=== PATIENT | male | born 1965 | race Caucasian/White ===

== ENCOUNTER 2019-09-17 15:26 | Emergency (ER) | payer BC, SELFPAY ==
[2019-09-17 15:28] VITALS: BP 123/89; PULSE 103; RESP 18; TEMP 36.7; O2SAT 97; BMI 30.7
--- NOTE | 2019-09-17 17:14 | ED_ITS ---
HPI - Wound/Laceration General: Chief Complaint: Wound/Laceration Stated Complaint: foot pain Time Seen by Provider: 09/17/19 17:09 History of Present Illness: HPI narrative: Patient is a 54-year-old male who comes to the ED with a diabetic ulcer on right great toe. Patient has a past medical history of diabetes and neuropathy. Patient says that wound started with cut on his right big toe about 2 to 3 weeks ago. He was putting Neosporin and bandaging wound daily. It then started getting worse and he went and saw his PCP and he prescribed him doxycycline and Augmentin. He has been taking all his medications and wound continues to progress. He does not have any pain with ulcer due to his diabetic neuropathy. He has not seen wound clinic. Patient states he has had some low-grade fevers the past couple days with temperatures of about 100 ?F. Associated symptoms: Reports fever(s); Denies chills, nausea or vomiting Review of Systems Const: Reports: fever; Denies: chills or fatigue Eyes: Denies: change in vision or eye discomfort ENMT: Denies: throat pain, painful swallowing, nasal discharge or nasal congestion Card: Denies: chest pain, palpitations, edema, swelling of feet/ankles, shortness of breath on exertion or shortness of breath when lying down Resp: Denies: shortness of breath, productive cough or non-productive cough GI: Denies: abdominal pain, nausea, vomiting, diarrhea, constipation or blood in stool : Denies: flank pain, difficulty urinating, painful urination or blood in urine Musc: Reports: extremity swelling (right great toe); Denies: neck pain or back pain Skin/Breast: Reports: redness (right great toe) and non-healing lesion (right great toe ulcer); Denies: rash or new lesion Neuro: Denies: headache, numbness in extremities or weakness in extremities [facility] ED PFSH: Medical History (Updated 09/17/19 @ 19:32 by OLIVA Iyer) Diabetes Neuropathy Social History Smoking and tobacco status: never smoked Physical Exam Const: COMMON NORMALS: oriented x3 HENMT: COMMON NORMALS: normocephalic HEAD & SCALP: normocephalic MOUTH: oral and palatal mucosa normal THROAT: posterior oropharynx normal and uvula midline Neck/C-Spine: COMMON NORMALS: supple GENERAL: Yes normal visual inspection Resp: COMMON NORMALS: normal respiratory effort, no retractions, no use of accessory muscles and clear to auscultation bilaterally AUSCULTATION: clear to auscultation bilaterally Cardio: COMMON NORMALS: regular rate, regular rhythm, S1 normal heart sound, S2 normal heart sound, no gallops, no clicks, no murmurs and peripheral pulses 2+ throughout RATE: regular rate RHYTHM: regular rhythm HEART SOUNDS: S1 normal and S2 normal PERIPHERAL PULSES: pulses 2+ throughout GI: COMMON NORMALS: normal to inspection, nondistended, normoactive bowel sounds, soft to palpation, non-tender and no masses PALPATION: Yes soft : COMMON NORMALS: Yes no CVA tenderness BLADDER/KIDNEY EXAM: Yes no CVA tenderness Back/Pelvis: COMMON NORMALS: no CVA tenderness Neuro: COMMON NORMALS: oriented x3 and moves all extremities Skin: WOUNDS: Yes wounds noted (Ulcers on bottom side of right great toe erythema and swelling covering the entire great toe) size (2.5cm circular ulcer with surrounding erythema), bed (Ulcer at depth of subcutaneous tissue.) nec rotic, drainage white, serous and purulent and with surrounding erythema (Patient has some surrounding cellulitis on the great great toe around the ulcer with some necrotic skin tissue on the great toe as well) Course Vital Signs: Vital signs: Vital Signs Temperature 98.0 F 09/17/19 15:28 Pulse Rate 93 09/17/19 21:59 Respiratory Rate 18 09/17/19 21:59 Blood Pressure 126/89 09/17/19 21:59 Pulse Oximetry 96 09/17/19 21:59 MDM - Wound/Laceration MDM Narrative: Medical decision making narrative: Patient is a 54-year-old male who comes to the ED with a diabetic ulcer on right great toe. Patient is currently on two antibiotics and not seeing any improvement. Physical exam showed a 2.5cm ulcer on right great toe with surrounding erythema and some necrotic skin tissue. Wound is also draining fluid. Right foot x-ray showed no soft tissue emphysema or osteomyelitis. ESR 93, CRP 276.8. CBC showed a white blood cell count of 13.4. Sodium of 127. Patient was given IV fluids and IV antibiotics (Rocephin and vancomycin) while here in the ED. I put a referral in with case management for patient to be seen at wound clinic. Patient was discharged with a prescription of Bactrim and told to stop taking his doxycycline. Patient understood and agreed with plan. Lab Data: Labs: Lab Results 09/17/19 09/17/19 09/17/19 Range/Units 20:31 20:31 20:31 WBC 13.4 H (4.0-10.0) 10^3/ uL RBC 5.49 H (4.1-5.3) 10^6/u L Hgb 14.0 (11.7-16.6) g/dL Hct 42.8 (42.0-52.0) % MCV 78.0 L (80-94) fL MCH 25.5 L (28.0-34.0) pg MCHC 32.7 (30.0-36.0) g/dL RDW 12.2 (12.1-15.1) % Plt Count 324 (130-400) 10^3/c mm MPV 9.1 (7.4-10.4) fL Neut % (Auto) 74.6 % Lymph % (Auto) 15.4 % [place] % (Auto) 7.9 % Eos % (Auto) 0.8 % Baso % (Auto) 0.3 % Neut # (Auto) 10.0 H (1.8-7.7) 10^3/u L Lymph # (Auto) 2.1 (0.8-4.8) 10^3/u L [place] # (Auto) 1.1 H (0.2-0.9) 10^3/u L Eos # (Auto) 0.1 (0.0-0.8) 10^3/u L Baso # (Auto) 0.0 (0.0-0.1) 10^3/u L Nucleated RBC % (a uto) 0 % Nucleated RBCs # 0.0 /100WBC ESR 93 H (0-10) mm/hr Sodium 127 L (136-145) mmol/L Potassium 4.4 (3.5-5.1) mmol/L Chloride 87 L (98-107) mmol/L Carbon Dioxide 25 (22-29) mmol/L Anion Gap 19.4 H (5-19) BUN 12 (6-20) mg/dL Creatinine 0.7 (0.7-1.2) mg/dL GFR Calculation 118.0 (90-130) mL/min Glucose 298 H (65-115) mg/dL Calculated Osmolal ity 271 L (285-295) mOsm/k g Calcium 9.4 (8.5-10.5) mg/dL Total Bilirubin 0.6 (0.15-1.2) mg/dL AST 14 (0-40) U/L ALT 16 (0-41) U/L Alkaline Phosphata se 100 (40-130) IU/L C-Reactive Protein 276.8 H (0.0-4.9) mg/L Total Protein 8.6 (6.6-8.7) g/dL Albumin 3.4 L (3.5-5.2) g/dL Globulin 5.2 H (1.3-4.6) g/dL Imaging Data^: Xray Ortho: Attestation: I personally reviewed and interpreted this imaging study as follows: Radiologist's impression: [place] [id number] XRay Report Signed Patient: Baldev Schmidt Unit #: [id number] : 1965 Age/Sex: 54 / M ADM Date: 09/17/19 Loc: ER Room/Bed: Attending Dr: Ordering Provider/Ordering MD: Freddy Beltre Date of Service: 09/17/19 Procedure(s): XR foot RT min 3V* [id number] Accession Number(s): [id number] Report Number: [id number] PROCEDURE INFORMATION: Exam: XR Right Foot Complete Exam date and time: 09/17/2019 5:47 PM Age: 54 years old Clinical indication: Other: Nonhealing ulcer RT great toe. Toe is black and swollen; Additional info: Chronic ulcer that is getting worse on great toe TECHNIQUE: Imaging protocol: XR Right foot. Views: 3 or more views. COMPARISON: No relevant prior studies available. FINDINGS: Bones/joints: Calcaneal spur. Soft tissues: Great toe soft tissue swelling with possible ulceration or skin defects over the medial aspect of the distal great toe. No obvious soft tissue emphysema or osteomyelitis. XR/XR foot RT min 3V* [id number] IMPRESSION: 1. Great toe soft tissue swelling with possible ulceration or skin defects over the medial aspect of the distal great toe. 2. No obvious soft tissue emphysema or osteomyelitis. Dictated By: Tj Tabares MD Signed By: Tj Tabares MD Signed Date/Time: 09/17/191806 DD/ 04 Discharge Plan Discharge Patient Disposition: Home, Self-Care Clinical Impression: Diabetic foot ulcer Qualifiers: Diabetic foot ulcer location: toe Diabetes mellitus type: type 2 Laterality: right Non-pressure ulcer stage: limited to breakdown of skin Qualified Code(s): E11.621 - Type 2 diabetes mellitus with foot ulcer Cellulitis Qualifiers: Site of cellulitis: extremity Site of cellulitis of extremity: toe Laterality: right Qualified Code(s): L03.031 - Cellulitis of right toe Condition: Stable Prescriptions: New Bactrim DS 800-160 mg tablet 2 tab PO BID 10 Days Qty: 40 RF: 0 Discharge Orders: Discharge Order (Routine); Ordered 09/17/19 Ordered By: Freddy Beltre Discharge Diet: Regular Discharge Activity: Resume usual activity Patient Instructions: Chronic Wound Care (ED), Wound Healing and Your Diet (ED), Wound Care (General) Activity Restrictions/Additional Instructions: Wound care clinic should be calling you to set up an appointment in the next several days. Take full course of antibiotics as prescribed. You can stop taking doxycycline, but continue the other antibiotic (augmentin) along with newly prescribed antibiotic. Discharge Date/Time: 09/17/19 22:00 Coding Level of Care Code ED Market Research Associate for [employer] Fwd Exam Comprehensive
--- NOTE | 2019-09-17 17:44 | XRR_ITS ---
PROCEDURE INFORMATION: Exam: XR Right Foot Complete Exam date and time: 09/17/2019 5:47 PM Age: 54 years old Clinical indication: Other: Nonhealing ulcer RT great toe. Toe is black and swollen; Additional info: Chronic ulcer that is getting worse on great toe TECHNIQUE: Imaging protocol: XR Right foot. Views: 3 or more views. COMPARISON: No relevant prior studies available. FINDINGS: Bones/joints: Calcaneal spur. Soft tissues: Great toe soft tissue swelling with possible ulceration or skin defects over the medial aspect of the distal great toe. No obvious soft tissue emphysema or osteomyelitis. XR/XR foot RT min 3V* [id number] IMPRESSION: 1. Great toe soft tissue swelling with possible ulceration or skin defects over the medial aspect of the distal great toe. 2. No obvious soft tissue emphysema or osteomyelitis.
[2019-09-17] MEDS: cefTRIAXone 1,000 MG in sodium chloride 0.9% (plus) 50 ML 100 MG IV (18:35)
[2019-09-17] MEDS: sodium chloride 0.9% 500 ML IV ×2 (18:36→20:44)
[2019-09-17 20:45] LABS: Basophils % 0.3 %; Eosinophils # 0.1 10^3/uL (0.0-0.8); Eosinophils % 0.8 %; Hematocrit 42.8 % (42.0-52.0); Lymphocytes # 2.1 10^3/uL (0.8-4.8); Lymphocytes % 15.4 %; Mean Corpuscular HGB Conc 32.7 g/dL (30.0-36.0); Mean Corpuscular Hemoglobin 25.5 pg (28.0-34.0); Mean Platelet Volume 9.1 fL (7.4-10.4); Monocytes # 1.1 10^3/uL (0.2-0.9); Monocytes % 7.9 %; Neutrophils % 74.6 %; Nucleated Red Blood Cells % 0 %; Platelet Count 324 10^3/cmm (130-400); Red Blood Count 5.49 10^6/uL (4.1-5.3); Red Cell Distribution Width 12.2 % (12.1-15.1); White Blood Count 13.4 10^3/uL (4.0-10.0)
[2019-09-17 21:06] LABS: Alanine Aminotransferase 16 U/L (0-41); Albumin Level 3.4 g/dL (3.5-5.2); Alkaline Phosphatase 100 IU/L (40-130); Anion Gap 19.4 (5-19); Aspartate Amino Transferase 14 U/L (0-40); Blood Urea Nitrogen 12 mg/dL (6-20); C Reactive Protein 276.8 mg/L (0.0-4.9); Calcium 9.4 mg/dL (8.5-10.5); Carbon Dioxide 25 mmol/L (22-29); Chloride 87 mmol/L (98-107); Globulin 5.2 g/dL (1.3-4.6); Glucose 298 mg/dL (65-115); Osmolality Calculated 271 mOsm/kg (285-295); Potassium 4.4 mmol/L (3.5-5.1); Sodium 127 mmol/L (136-145); Total Bilirubin 0.6 mg/dL (0.15-1.2); Total Protein 8.6 g/dL (6.6-8.7)
[2019-09-17 21:30] LABS: Erythrocyte Sedimentation Rate 93 mm/hr (0-10)
[2019-09-17 21:59] VITALS: BP 126/89; PULSE 93; RESP 18; O2SAT 96
--- NOTE | 2019-09-20 13:25 | DCPLANNER ---
online advertising manager had message to schedule a follow up with Wound Care. online advertising manager called the Wound Care clinic, spoke with Reina. A follow up appointment is scheduled for Sunday, September 22, 2019 at 8:[address] Melendez. Clinic will call patient with appointment information.
--- NOTE | 2019-11-02 08:22 | DCPLANNER ---
Patient attended appointment scheduled for 09.22.19 with Wound Care.
== END 2019-09-17 22:00 | disposition home or self-care (01) ==
PROVIDERS: Emergency Provider Physician Assistant
DX: E11.621 Type 2 diabetes mellitus with foot ulcer (principal); L03.031 Cellulitis of right toe; L97.519 Non-pressure chronic ulcer of other part of right foot with unspecified severity; Z79.2 Long term (current) use of antibiotics
CPT/HCPCS: 12345; 73630; 80053; 85025; 85651; 86140; 87070; 87077; 87186; 87205; 96360; 96361; 96365; 96366; 96367; 99283; 99284; A9270; J0696; J3370; J7040; J7050

== ENCOUNTER 2019-09-29 08:28 | Outpatient (RCR) | payer BC, SELFPAY ==
--- NOTE | 2019-09-28 08:33 | MR_ITS ---
WS: [id number] INDICATION: Pain redness nonhealing ulcer. TECHNIQUE: MRI of the right foot without and with gadolinium enhancement. Sagittal T1, sagittal PD, s agittal STIR imaging. Axial T1 and T2 and STIR imaging. Post gadolinium imaging was obtained. FINDINGS: Radiograph September 17, 2019 reviewed. Localization marker over the great toe medially. Diffus e soft tissue edema with T2 hyperintensity and diffuse enhancement consistent with cellulitis. No saadia inable abscess or fluid collection. Replacement of the normal fatty bone marrow signal involving the first distal proximal phalanx extending across the first DIP. Diffuse enhancement involving the proxi mal phalanx extending to the PIP joint. Findings are consistent with osteomyelitis. Metatarsals are normal in appearance. Soft tissue edema and cellulitis extending into the deep soft t issues and intertarsal soft tissues. Subcutaneous edema involving the lower leg and ankle. Scattered degenerative arthritis otherwise the right foot. Degenerative arthritis involving the calcaneus with degenerative cysts and bone islands. MR/MR foot RT wo/w con [id number] IMPRESSION: 1. Evidence of osteomyelitis involving the first distal phalanx and proximal phalanx with diffuse T2 hyperintensity and enhancement. Replacement normal bone marrow signal. 2. Diffuse cellulitis involving the soft tissues about the first digit extendi ng into the deep soft tissues. No drainable abscess or fluid collection.
== END 2019-09-30 23:59 | disposition home or self-care (01) ==
LOC: RADWPI 08:28
PROVIDERS: Visit Provider Thoracic Surgery (Cardiothoracic Vascular Surgery)
DX: E11.621 Type 2 diabetes mellitus with foot ulcer (principal); L97.516 Non-pressure chronic ulcer of other part of right foot with bone involvement without evidence of necrosis
CPT/HCPCS: 11042; 11045; 73720; 87070; 87077; 87106; 87176; 87186; 87205; 99213; A6446; A9579; G0463; L3260

== ENCOUNTER → 2019-09-30 09:09 | Day surgery (SDC) | payer BC, SELFPAY ==
--- NOTE | 2019-09-30 09:48 | XR_ITS ---
WS: [id number] PORTABLE CHEST HISTORY: picc line placement COMPARISON: None available. RIGHT PICC line is been placed with tip in the mid SVC. No complications. Subsegmental linear atelectasis central RIGHT lung. No pleural effusion or pneumothorax. Cardiac size: Normal. Mediastinum/Aorta: Normal mediastinum. No osseous abnormality seen. XR/XR chest 1V portable [id number] IMPRESSION: Satisfactory position of the RIGHT PICC line.
--- NOTE | 2019-09-30 10:20 | ECG_ITS ---
Measurements Intervals [place] Rate: 78 P: 45 AR: 195 QRS: 1 QRSD: 118 T: 37 QT: 361 QTc: 412 SINUS RHYTHM WITH FREQUENT VENTRICULAR PREMATURE COMPLEXES MODERATE INTRAVENTRICULAR CONDUCTION DELAY [110+ ms QRS DURATION] No previous ECG available for comparison Electronically Signed On 10-01-2019 16:09:43 CDT by Heidi Benitez M.D. [id number]
[2019-09-30 10:28] VITALS: BP 112/87; PULSE 70; RESP 16; TEMP 36.2; O2SAT 99; BMI 30.7
== END ==
LOC: OPS 09:15
PROVIDERS: PCP Nurse Practitioner Family; Visit Provider Thoracic Surgery (Cardiothoracic Vascular Surgery)
DX: Z45.2 Encounter for adjustment and management of vascular access device (principal)
CPT/HCPCS: 36569; 71045; 93005; 96365; 96366; J3370; J7040

== ENCOUNTER 2019-10-02 16:29 | Outpatient (CLI) | payer BC, SELFPAY ==
[2019-10-02 17:21] LABS: Vancomycin Trough 9.2 ug/mL (10-15)
== END 2019-10-02 16:30 | disposition home or self-care (01) ==
LOC: LAB 16:32
PROVIDERS: PCP Nurse Practitioner Family; Visit Provider Thoracic Surgery (Cardiothoracic Vascular Surgery)
DX: M86.9 Osteomyelitis, unspecified (principal)
CPT/HCPCS: 80202

== ENCOUNTER 2019-10-04 20:00 | Outpatient (CLI) | payer BC, SELFPAY ==
[2019-10-04 22:18] LABS: Basophils % 0.4 %; Eosinophils # 0.2 10^3/uL (0.0-0.8); Eosinophils % 2.6 %; Hematocrit 40.8 % (42.0-52.0); Hemoglobin 13.2 g/dL (11.7-16.6); Lymphocytes # 2.9 10^3/uL (0.8-4.8); Lymphocytes % 40.4 %; Mean Corpuscular HGB Conc 32.4 g/dL (30.0-36.0); Mean Corpuscular Hemoglobin 25.9 pg (28.0-34.0); Mean Corpuscular Volume 80.2 fL (80-94); Mean Platelet Volume 9.6 fL (7.4-10.4); Monocytes # 0.4 10^3/uL (0.2-0.9); Monocytes % 5.5 %; Neutrophils # 3.5 10^3/uL (1.8-7.7); Neutrophils % 50.2 %; Nucleated Red Blood Cells % 0 %; Platelet Count 297 10^3/cmm (130-400); Red Blood Count 5.09 10^6/uL (4.1-5.3); Red Cell Distribution Width 12.6 % (12.1-15.1); White Blood Count 7.1 10^3/uL (4.0-10.0)
[2019-10-04 22:28] LABS: Vancomycin Trough 9.6 ug/mL (10-15)
[2019-10-05 16:50] LABS: Anion Gap 17.7 (5-19); Blood Urea Nitrogen 13 mg/dL (6-20); Calcium 9.5 mg/dL (8.5-10.5); Carbon Dioxide 23 mmol/L (22-29); Chloride 95 mmol/L (98-107); Glucose 399 mg/dL (65-115); Osmolality Calculated 285 mOsm/kg (285-295); Potassium 4.7 mmol/L (3.5-5.1); Sodium 131 mmol/L (136-145)
== END 2019-10-04 20:01 | disposition home or self-care (01) ==
LOC: LAB 20:03
PROVIDERS: PCP Nurse Practitioner Family; Visit Provider Thoracic Surgery (Cardiothoracic Vascular Surgery)
DX: M86.00 Acute hematogenous osteomyelitis, unspecified site (principal)
CPT/HCPCS: 80048; 80202; 85025

== ENCOUNTER 2019-10-06 08:21 | Outpatient (CLI) | payer BC, SELFPAY | END 2019-10-06 08:22 | disposition home or self-care (01) | LOC: WOUND 08:25 | PROVIDERS: PCP Nurse Practitioner Family; Visit Provider Thoracic Surgery (Cardiothoracic Vascular Surgery) | DX: E11.621 Type 2 diabetes mellitus with foot ulcer (principal); L97.513 Non-pressure chronic ulcer of other part of right foot with necrosis of muscle | CPT/HCPCS: 11042; 11045; A6446 ==

== ENCOUNTER 2019-10-07 16:34 | Outpatient (CLI) | payer BC, SELFPAY ==
[2019-10-07 17:08] LABS: Anion Gap 15.1 (5-19); Blood Urea Nitrogen 8 mg/dL (6-20); Calcium 8.8 mg/dL (8.5-10.5); Carbon Dioxide 25 mmol/L (22-29); Chloride 94 mmol/L (98-107); Glucose 359 mg/dL (65-115); Osmolality Calculated 280 mOsm/kg (285-295); Potassium 4.1 mmol/L (3.5-5.1); Sodium 130 mmol/L (136-145); Vancomycin Trough 16.3 ug/mL (10-15)
== END 2019-10-07 16:35 | disposition home or self-care (01) ==
LOC: LAB 16:36
PROVIDERS: PCP Nurse Practitioner Family; Visit Provider Thoracic Surgery (Cardiothoracic Vascular Surgery)
DX: M86.171 Other acute osteomyelitis, right ankle and foot (principal)
CPT/HCPCS: 80048; 80202

== ENCOUNTER 2019-10-07 19:39 | Outpatient (CLI) | payer BC, SELFPAY ==
[2019-10-07 20:10] LABS: Anion Gap 15.6 (5-19); Blood Urea Nitrogen 9 mg/dL (6-20); Calcium 9.8 mg/dL (8.5-10.5); Carbon Dioxide 25 mmol/L (22-29); Chloride 97 mmol/L (98-107); Glucose 334 mg/dL (65-115); Osmolality Calculated 285 mOsm/kg (285-295); Potassium 4.6 mmol/L (3.5-5.1); Sodium 133 mmol/L (136-145); Vancomycin Trough 18.9 ug/mL (10-15)
== END 2019-10-07 19:40 | disposition home or self-care (01) ==
LOC: LAB 19:41
PROVIDERS: PCP Nurse Practitioner Family; Visit Provider Thoracic Surgery (Cardiothoracic Vascular Surgery)
DX: M86.171 Other acute osteomyelitis, right ankle and foot (principal)
CPT/HCPCS: 80048; 80202

== ENCOUNTER 2019-10-11 18:38 | Outpatient (CLI) | payer BC, SELFPAY ==
[2019-10-12 01:56] LABS: Blood Urea Nitrogen 11 mg/dL (6-20); Calcium 9.1 mg/dL (8.5-10.5); Carbon Dioxide 26 mmol/L (22-29); Chloride 96 mmol/L (98-107); Glucose 223 mg/dL (65-115); Osmolality Calculated 283 mOsm/kg (285-295); Sodium 135 mmol/L (136-145); Vancomycin Trough 19.4 ug/mL (10-15)
== END 2019-10-11 18:39 | disposition home or self-care (01) ==
LOC: LAB 18:41
PROVIDERS: PCP Nurse Practitioner Family; Visit Provider Thoracic Surgery (Cardiothoracic Vascular Surgery)
DX: M86.9 Osteomyelitis, unspecified (principal)
CPT/HCPCS: 80048; 80202

== ENCOUNTER 2019-10-13 09:25 | Outpatient (CLI) | payer BC, SELFPAY | END 2019-10-13 09:26 | disposition home or self-care (01) | LOC: WOUND 09:25 | PROVIDERS: PCP Nurse Practitioner Family; Visit Provider Thoracic Surgery (Cardiothoracic Vascular Surgery) | DX: E11.621 Type 2 diabetes mellitus with foot ulcer (principal); L97.512 Non-pressure chronic ulcer of other part of right foot with fat layer exposed; L97.412 Non-pressure chronic ulcer of right heel and midfoot with fat layer exposed | CPT/HCPCS: 11042 ==

== ENCOUNTER 2019-10-14 17:26 | Outpatient (CLI) | payer BC, SELFPAY ==
[2019-10-14 23:42] LABS: Anion Gap 18.9 (5-19); Blood Urea Nitrogen 9 mg/dL (6-20); Calcium 9.2 mg/dL (8.5-10.5); Carbon Dioxide 23 mmol/L (22-29); Chloride 94 mmol/L (98-107); Glucose 317 mg/dL (65-115); Osmolality Calculated 282 mOsm/kg (285-295); Potassium 3.9 mmol/L (3.5-5.1); Sodium 132 mmol/L (136-145); Vancomycin Trough 18.5 ug/mL (10-15)
== END 2019-10-14 17:27 | disposition home or self-care (01) ==
LOC: LAB 17:27
PROVIDERS: PCP Nurse Practitioner Family; Visit Provider Thoracic Surgery (Cardiothoracic Vascular Surgery)
DX: M86.171 Other acute osteomyelitis, right ankle and foot (principal)
CPT/HCPCS: 80048; 80202

== ENCOUNTER 2019-10-18 17:05 | Outpatient (CLI) | payer BC, SELFPAY ==
[2019-10-18 19:52] LABS: Basophils # 0.1 10^3/uL (0.0-0.1); Eosinophils # 0.2 10^3/uL (0.0-0.8); Eosinophils % 4.1 %; Hematocrit 40.9 % (42.0-52.0); Hemoglobin 13.1 g/dL (11.7-16.6); Lymphocytes # 1.8 10^3/uL (0.8-4.8); Lymphocytes % 34.4 %; Mean Corpuscular Hemoglobin 25.4 pg (28.0-34.0); Mean Corpuscular Volume 79.4 fL (80-94); Mean Platelet Volume 9.8 fL (7.4-10.4); Monocytes # 0.4 10^3/uL (0.2-0.9); Neutrophils # 2.7 10^3/uL (1.8-7.7); Neutrophils % 52.3 %; Nucleated Red Blood Cells % 0 %; Platelet Count 225 10^3/cmm (130-400); Red Blood Count 5.15 10^6/uL (4.1-5.3); Red Cell Distribution Width 13.2 % (12.1-15.1); White Blood Count 5.1 10^3/uL (4.0-10.0)
[2019-10-19 00:34] LABS: Anion Gap 17.9 (5-19); Blood Urea Nitrogen 8 mg/dL (6-20); Calcium 8.9 mg/dL (8.5-10.5); Carbon Dioxide 23 mmol/L (22-29); Chloride 99 mmol/L (98-107); Glucose 268 mg/dL (65-115); Osmolality Calculated 287 mOsm/kg (285-295); Potassium 3.9 mmol/L (3.5-5.1); Sodium 136 mmol/L (136-145); Vancomycin Trough 19.8 ug/mL (10-15)
== END 2019-10-18 17:06 | disposition home or self-care (01) ==
PROVIDERS: PCP Nurse Practitioner Family; Visit Provider Thoracic Surgery (Cardiothoracic Vascular Surgery)
DX: M86.171 Other acute osteomyelitis, right ankle and foot (principal)
CPT/HCPCS: 80048; 80202; 85025

== ENCOUNTER 2019-10-20 09:01 | Outpatient (CLI) | payer BC, SELFPAY | END 2019-10-20 09:02 | disposition home or self-care (01) | LOC: WOUND 09:02 | PROVIDERS: PCP Nurse Practitioner Family; Visit Provider Thoracic Surgery (Cardiothoracic Vascular Surgery) | DX: E11.621 Type 2 diabetes mellitus with foot ulcer (principal); L97.512 Non-pressure chronic ulcer of other part of right foot with fat layer exposed | CPT/HCPCS: 11042; A6446 ==

== ENCOUNTER 2019-10-21 16:14 | Outpatient (CLI) | payer BC, SELFPAY ==
[2019-10-21 16:57] LABS: Anion Gap 17.1 (5-19); Blood Urea Nitrogen 10 mg/dL (6-20); Calcium 9.1 mg/dL (8.5-10.5); Carbon Dioxide 24 mmol/L (22-29); Chloride 96 mmol/L (98-107); Glomerular Filtration Rate 101.1 mL/min (90-130); Glucose 290 mg/dL (65-115); Osmolality Calculated 283 mOsm/kg (285-295); Potassium 4.1 mmol/L (3.5-5.1); Sodium 133 mmol/L (136-145)
== END 2019-10-21 16:15 | disposition home or self-care (01) ==
LOC: LAB 16:17
PROVIDERS: PCP Nurse Practitioner Family; Visit Provider Thoracic Surgery (Cardiothoracic Vascular Surgery)
DX: M86.071 Acute hematogenous osteomyelitis, right ankle and foot (principal)
CPT/HCPCS: 80048; 80202

== ENCOUNTER 2019-10-26 18:09 | Outpatient (CLI) | payer BC, SELFPAY ==
[2019-10-26 20:00] LABS: Blood Urea Nitrogen 12 mg/dL (6-20); Carbon Dioxide 26 mmol/L (22-29); Chloride 94 mmol/L (98-107); Glucose 263 mg/dL (65-115); Osmolality Calculated 279 mOsm/kg (285-295); Sodium 132 mmol/L (136-145); Vancomycin Trough 15.5 ug/mL (10-15)
== END 2019-10-26 18:10 | disposition home or self-care (01) ==
LOC: LAB 18:11
PROVIDERS: PCP Nurse Practitioner Family; Visit Provider Thoracic Surgery (Cardiothoracic Vascular Surgery)
DX: M86.9 Osteomyelitis, unspecified (principal)
CPT/HCPCS: 80048; 80202

== ENCOUNTER 2019-10-27 10:14 | Outpatient (CLI) | payer BC, SELFPAY | END 2019-10-27 10:15 | disposition home or self-care (01) | LOC: WOUND 10:14 | PROVIDERS: PCP Nurse Practitioner Family; Visit Provider Thoracic Surgery (Cardiothoracic Vascular Surgery) | DX: E11.621 Type 2 diabetes mellitus with foot ulcer (principal); L97.512 Non-pressure chronic ulcer of other part of right foot with fat layer exposed; L97.412 Non-pressure chronic ulcer of right heel and midfoot with fat layer exposed | CPT/HCPCS: 11042; 87070; 87077; 87176; 87186; 87205; A6446 ==

== ENCOUNTER 2019-10-28 16:33 | Outpatient (CLI) | payer BC, SELFPAY ==
[2019-10-28 20:34] LABS: Blood Urea Nitrogen 14 mg/dL (6-20); Carbon Dioxide 23 mmol/L (22-29); Chloride 96 mmol/L (98-107); Glomerular Filtration Rate 101.1 mL/min (90-130); Glucose 348 mg/dL (65-115); Osmolality Calculated 288 mOsm/kg (285-295); Sodium 134 mmol/L (136-145); Vancomycin Trough 17.8 ug/mL (10-15)
== END 2019-10-28 16:34 | disposition home or self-care (01) ==
LOC: LAB 16:35
PROVIDERS: PCP Nurse Practitioner Family; Visit Provider Thoracic Surgery (Cardiothoracic Vascular Surgery)
DX: M86.9 Osteomyelitis, unspecified (principal)
CPT/HCPCS: 80048; 80202

== ENCOUNTER 2019-11-01 15:36 | Outpatient (CLI) | payer BC, SELFPAY ==
[2019-11-01 16:32] LABS: Basophils % 0.5 %; Eosinophils # 0.2 10^3/uL (0.0-0.8); Eosinophils % 3.3 %; Hematocrit 39.5 % (42.0-52.0); Hemoglobin 12.8 g/dL (11.7-16.6); Lymphocytes % 34.1 %; Mean Corpuscular HGB Conc 32.4 g/dL (30.0-36.0); Mean Corpuscular Hemoglobin 25.4 pg (28.0-34.0); Mean Corpuscular Volume 78.5 fL (80-94); Mean Platelet Volume 9.5 fL (7.4-10.4); Monocytes # 0.4 10^3/uL (0.2-0.9); Monocytes % 7.6 %; Neutrophils # 3.1 10^3/uL (1.8-7.7); Neutrophils % 53.8 %; Nucleated Red Blood Cells % 0 %; Platelet Count 233 10^3/cmm (130-400); Red Blood Count 5.03 10^6/uL (4.1-5.3); Red Cell Distribution Width 13.8 % (12.1-15.1); White Blood Count 5.8 10^3/uL (4.0-10.0)
[2019-11-01 17:23] LABS: Anion Gap 17.6 (5-19); Blood Urea Nitrogen 12 mg/dL (6-20); Calcium 9.9 mg/dL (8.5-10.5); Carbon Dioxide 25 mmol/L (22-29); Chloride 94 mmol/L (98-107); Glomerular Filtration Rate 88.3 mL/min (90-130); Glucose 266 mg/dL (65-115); Osmolality Calculated 281 mOsm/kg (285-295); Potassium 3.6 mmol/L (3.5-5.1); Sodium 133 mmol/L (136-145)
== END 2019-11-01 15:37 | disposition home or self-care (01) ==
LOC: LAB 15:37
PROVIDERS: PCP Nurse Practitioner Family; Visit Provider Thoracic Surgery (Cardiothoracic Vascular Surgery)
DX: M86.00 Acute hematogenous osteomyelitis, unspecified site (principal)
CPT/HCPCS: 80048; 80202; 85025

== ENCOUNTER 2019-11-03 10:10 | Outpatient (CLI) | payer BC, SELFPAY | END 2019-11-03 10:11 | disposition home or self-care (01) | LOC: WOUND 10:10 | PROVIDERS: PCP Nurse Practitioner Family; Visit Provider Thoracic Surgery (Cardiothoracic Vascular Surgery) | DX: E11.621 Type 2 diabetes mellitus with foot ulcer (principal); L97.512 Non-pressure chronic ulcer of other part of right foot with fat layer exposed; L97.412 Non-pressure chronic ulcer of right heel and midfoot with fat layer exposed | CPT/HCPCS: 11042 ==

== ENCOUNTER 2019-11-04 17:31 | Outpatient (CLI) | payer BC, SELFPAY ==
[2019-11-04 20:21] LABS: Anion Gap 16.9 (5-19); Blood Urea Nitrogen 13 mg/dL (6-20); Calcium 9.3 mg/dL (8.5-10.5); Carbon Dioxide 24 mmol/L (22-29); Chloride 97 mmol/L (98-107); Glomerular Filtration Rate 88.3 mL/min (90-130); Glucose 299 mg/dL (65-115); Osmolality Calculated 285 mOsm/kg (285-295); Potassium 3.9 mmol/L (3.5-5.1); Sodium 134 mmol/L (136-145); Vancomycin Trough 9.7 ug/mL (10-15)
== END 2019-11-04 17:32 | disposition home or self-care (01) ==
PROVIDERS: PCP Nurse Practitioner Family; Visit Provider Thoracic Surgery (Cardiothoracic Vascular Surgery)
DX: M86.071 Acute hematogenous osteomyelitis, right ankle and foot (principal)
CPT/HCPCS: 80048; 80202

== ENCOUNTER 2019-11-08 17:30 | Outpatient (CLI) | payer BC, SELFPAY ==
[2019-11-08 17:57] LABS: Blood Urea Nitrogen 15 mg/dL (6-20); Calcium 8.9 mg/dL (8.5-10.5); Carbon Dioxide 25 mmol/L (22-29); Chloride 96 mmol/L (98-107); Glomerular Filtration Rate 101.1 mL/min (90-130); Glucose 243 mg/dL (65-115); Osmolality Calculated 276 mOsm/kg (285-295); Sodium 131 mmol/L (136-145); Vancomycin Trough 16.2 ug/mL (10-15)
== END 2019-11-08 17:31 | disposition home or self-care (01) ==
LOC: LAB 17:32
PROVIDERS: PCP Nurse Practitioner Family; Visit Provider Thoracic Surgery (Cardiothoracic Vascular Surgery)
DX: M86.9 Osteomyelitis, unspecified (principal)
CPT/HCPCS: 80048; 80202

== ENCOUNTER 2019-11-10 09:57 | Outpatient (CLI) | payer BC, SELFPAY | END 2019-11-10 09:58 | disposition home or self-care (01) | LOC: WOUND 09:58 | PROVIDERS: PCP Nurse Practitioner Family; Visit Provider Thoracic Surgery (Cardiothoracic Vascular Surgery) | DX: E11.621 Type 2 diabetes mellitus with foot ulcer (principal); L97.512 Non-pressure chronic ulcer of other part of right foot with fat layer exposed | CPT/HCPCS: 11042; A6446 ==

== ENCOUNTER 2019-11-17 09:44 | Outpatient (CLI) | payer BC, SELFPAY | END 2019-11-17 09:45 | disposition home or self-care (01) | LOC: WOUND 09:47 | PROVIDERS: PCP Nurse Practitioner Family; Visit Provider Thoracic Surgery (Cardiothoracic Vascular Surgery) | DX: E11.621 Type 2 diabetes mellitus with foot ulcer (principal); L97.512 Non-pressure chronic ulcer of other part of right foot with fat layer exposed; L97.412 Non-pressure chronic ulcer of right heel and midfoot with fat layer exposed | CPT/HCPCS: 11042; L3260 ==

== ENCOUNTER 2019-11-24 08:51 | Outpatient (CLI) | payer BC, SELFPAY ==
--- NOTE | 2019-11-24 11:59 | XRR_ITS ---
PROCEDURE INFORMATION: Exam: XR Chest, 2 Views Exam date and time: 11/24/2019 12:19 PM Age: 54 years old Clinical indication: Screening exam; Other screening; Patient HX: PT has no chest complaints, has diabetic ulcer; Additional info: ? Bolus dz for hbo/diabetic foot ulcer/screen respiratory dis TECHNIQUE: Imaging protocol: XR of the chest Views: 2 views. COMPARISON: No relevant prior studies available. FINDINGS: Lungs: Mild interstitial prominence and parenchymal stranding, without acute infiltrate. Pleural space: No pleural effusion. Heart/Mediastinum: Normal configuration of the heart. Bones/joints: Degenerative change. XR/XR chest 2V* [id number] IMPRESSION: Mild interstitial prominence and parenchymal stranding, without acute infiltrate.
[2019-11-24 13:00] LABS: Alanine Aminotransferase 15 U/L (0-41); Albumin Level 3.7 g/dL (3.5-5.2); Alkaline Phosphatase 82 IU/L (40-130); Anion Gap 17.1 (5-19); Aspartate Amino Transferase 15 U/L (0-40); Blood Urea Nitrogen 9 mg/dL (6-20); Calcium 9.5 mg/dL (8.5-10.5); Carbon Dioxide 24 mmol/L (22-29); Chloride 93 mmol/L (98-107); Globulin 4.7 g/dL (1.3-4.6); Glomerular Filtration Rate 101.1 mL/min (90-130); Glucose 302 mg/dL (65-115); Osmolality Calculated 277 mOsm/kg (285-295); Potassium 4.1 mmol/L (3.5-5.1); Sodium 130 mmol/L (136-145); Total Bilirubin 0.5 mg/dL (0.15-1.2); Total Protein 8.4 g/dL (6.6-8.7)
[2019-11-24 13:14] LABS: Prealbumin 11.1 mg/dL (20-40)
[2019-11-24 14:18] LABS: Erythrocyte Sedimentation Rate 86 mm/hr (0-10)
[2019-11-24 15:02] LABS: Estmated Average Glucose 232; Hemoglobin A1C 9.7 % (4.0-6.0)
== END 2019-11-24 08:52 | disposition home or self-care (01) ==
LOC: WOUND 08:52
PROVIDERS: PCP Nurse Practitioner Family; Visit Provider Thoracic Surgery (Cardiothoracic Vascular Surgery)
DX: E11.621 Type 2 diabetes mellitus with foot ulcer (principal); L97.512 Non-pressure chronic ulcer of other part of right foot with fat layer exposed
CPT/HCPCS: 10060; 11042; 11044; 36415; 71046; 80053; 83036; 84134; 85651; 87070; 87077; 87176; 87186; 87205

== ENCOUNTER 2019-11-30 10:40 | Outpatient (CLI) | payer BC, SELFPAY ==
--- NOTE | 2019-11-30 10:46 | MR_ITS ---
WS: [id number] INDICATION: Osteomyelitis great toe TECHNIQUE: Multiplanar and multisequence MR of the right foot without and with gadolinium enhancement . Sagittal PD T1 and T2 imaging. Axial T1 and T2 and STIR imaging. Post gadolinium images obtained wi th fat saturation technique. FINDINGS: Comparison September 28, 2019 Ulceration with edema overlying the right great toe. Diffuse edema with soft tissue enhancement consi stent with cellulitis. Replacement of the normal T1 bone marrow signal with edema and enhancement inv olving the distal first phalanx and proximal phalanx extending to the MTP joint. Associated bone dest ruction involving the distal phalanx and distal proximal phalanx. Normal bone marrow signal in the first metatarsal. Soft tissue ulceration has progressed Otherwise no significant change from previous. MR/MR foot RT wo/w con [id number] IMPRESSION: 1. Extensive osteomyelitis involving the first distal phalanx and proximal pha lanx with bony destruction. This has progressed from previous. Osteomyelitis ex tends to the MTP joint. 2. Bone marrow signal in the first metatarsal is normal. 3. Small fluid collection or phlegmon deep to the ulceration with bony destruc tion.
== END 2019-11-30 10:41 | disposition home or self-care (01) ==
LOC: RADSHAW 10:40
PROVIDERS: PCP Nurse Practitioner Family; Visit Provider Thoracic Surgery (Cardiothoracic Vascular Surgery)
DX: M86.8X7 Other osteomyelitis, ankle and foot (principal)
CPT/HCPCS: 73720; A9579

== ENCOUNTER 2019-12-01 08:56 | Outpatient (CLI) | payer BC, SELFPAY | END 2019-12-01 08:57 | disposition home or self-care (01) | LOC: WOUND 08:56 | PROVIDERS: PCP Nurse Practitioner Family; Visit Provider Thoracic Surgery (Cardiothoracic Vascular Surgery) | DX: E11.621 Type 2 diabetes mellitus with foot ulcer (principal); L97.512 Non-pressure chronic ulcer of other part of right foot with fat layer exposed; L97.412 Non-pressure chronic ulcer of right heel and midfoot with fat layer exposed | CPT/HCPCS: 11042 ==

== ENCOUNTER 2019-12-06 09:15 | Day surgery (SDC) | payer OTHER, SELFPAY ==
[2019-12-02 15:17] VITALS: BMI 30.7
[2019-12-06 09:37] VITALS: BP 142/96; PULSE 64; RESP 16; TEMP 36.8; O2SAT 98
--- NOTE | 2019-12-06 09:42 | ECG_ITS ---
[facility] Test Date: 2019-12-06 Pat Name: Baldev Schmidt Department: Room: Gender: Male Shelf Stocker: : 1965 Requested By: Gabriel Melendez Order Number: [id number] Sawyer MD: Guillermo Rothman M.D. Measurements Intervals [place] Rate: 74 P: 51 MN: 188 QRS: 5 QRSD: 113 T: 35 QT: 374 QTc: 417 Interpretive Statements SINUS RHYTHM WITH FREQUENT VENTRICULAR PREMATURE COMPLEXES MODERATE INTRAVENTRICULAR CONDUCTION DELAY [110+ ms QRS DURATION] ABNORMAL RHYTHM ECG Compared to ECG 09/30/2019 10:24:45 No significant changes Electronically Signed On 12-06-2019 21:45:26 CDT by Guillermo Rothman M.D. [id number]
[2019-12-06] MEDS: sodium chloride 0.9% 1,000 ML 30 ML IV (09:57)
--- NOTE | 2019-12-06 10:03 | P.ANESASSM_ITS ---
Pre-Anesthetic Assessment Pre-Anesthetic Assessment: Height/Weight: Height 1.8 m Weight 99.79 kg Temp Pulse Resp BP Pulse Ox 98.2 F 64 16 142/96 98 12/06/19 09:37 12/06/19 09:37 12/06/19 09:37 12/06/19 09:37 12/06/19 09:37 Preop Diagnosis: Right great toe amputation Proposed Procedure: Operation Date: 12/06/19 11:10 Proposed Procedures p Amputation Toe/s/Right Great Toe(Right) - Gabriel Melendez MD Last intake: Intake Last Liquid Date 12/05/19 Last Liquid Time 20:00 Last Solid Date 12/05/19 Last Solid Time 20:00 Social: Social History: No alcohol and No tobacco Exam: Pre-Anes Outpt Exam: alert, oriented x 3 and clear to auscultation bilaterally Additional Exam Findings (including area of procedure): irreg rhythm, EKG shows freq PVCs Airway: Submandibular: WNL Cervical ROM: WNL MP: 2 Dentition: Other (teeth ok) History/ROS: No significant history except as noted Pulmonary: Pulmonary: None reported CV/HEM: CV/HEM: None reported : : None reported Hepatic: Hepatic: None reported GI: GI: None reported Metabolic: Metabolic: DM Musc/skel: Musc/skel: None reported Neuropsych: Neuropsych: Neuropathy (feet) Anesthetic Plan: ASA status: 3 Anesthesia: Anesthesia Evaluation and General Risk of > 500 ml blood loss (7ml/kg in children): No Meds/Allergies Current Medications: Current Medications Generic Name Dose Route Start Last Admin Trade Name Freq PRN Reason Stop Dose Admin Sodium Chloride 1,000 mls @ 30 ml s/hr 12/06/19 09:00 12/06/19 09:57 Sodium Chloride 0.9% IV 12/07/19 08:59 30 mls/hr .Q24H LUDMILA Administration PFSH Anesthesia 2 PFSH: Medical History Diabetes Neuropathy Social History Smoking and tobacco status: never smoked Data Anesthesia Cardiac Studies: No Data to Display
[2019-12-06 10:04] LABS: Glucose Point of Care 187 mg/dL (70-110)
[2019-12-06 10:07] LABS: Basophils % 0.7 %; Eosinophils # 0.2 10^3/uL (0.0-0.8); Eosinophils % 2.7 %; Hematocrit 38.3 % (42.0-52.0); Hemoglobin 12.5 g/dL (11.7-16.6); Lymphocytes # 2.2 10^3/uL (0.8-4.8); Lymphocytes % 39.1 %; Mean Corpuscular HGB Conc 32.6 g/dL (30.0-36.0); Mean Corpuscular Hemoglobin 25.2 pg (28.0-34.0); Mean Corpuscular Volume 77.1 fL (80-94); Mean Platelet Volume 8.2 fL (7.4-10.4); Monocytes # 0.3 10^3/uL (0.2-0.9); Monocytes % 6.1 %; Neutrophils # 2.8 10^3/uL (1.8-7.7); Neutrophils % 50.9 %; Nucleated Red Blood Cells % 0 %; Platelet Count 248 10^3/cmm (130-400); Red Blood Count 4.97 10^6/uL (4.1-5.3); Red Cell Distribution Width 13.3 % (12.1-15.1); White Blood Count 5.5 10^3/uL (4.0-10.0)
[2019-12-06 10:15] LABS: INR 0.93 (0.8-1.2)
[2019-12-06 10:23] LABS: Anion Gap 16.5 (5-19); Blood Urea Nitrogen 13 mg/dL (6-20); Calcium 9.3 mg/dL (8.5-10.5); Carbon Dioxide 23 mmol/L (22-29); Chloride 98 mmol/L (98-107); Glomerular Filtration Rate 78.2 mL/min (90-130); Glucose 199 mg/dL (65-115); Osmolality Calculated 278 mOsm/kg (285-295); Potassium 4.5 mmol/L (3.5-5.1); Sodium 133 mmol/L (136-145)
--- NOTE | 2019-12-06 11:54 | W.PM.OPSUD ---
Surgery/Procedure H&P Update DATE OF PROCEDURE: December 06, 2019 DATE H&P PERFORMED: 12/01/19 H&P UPDATE INFORMATION: I have reviewed H&P completed within last 30 days, I have examined patient prior to procedure and No changes to prior documentation PREOP DIAGNOSIS: Right great toe amputation PRIMARY INDICATION FOR PROCEDURE: Diabetic infection with osteomyelitis and extensive bone destruction refractory to medical management of the right great toe PLANNED PROCEDURE: Operation Date: 12/06/19 11:10 Proposed Procedures p Amputation Toe/s/Right Great Toe(Right) - Gabriel Melendez MD
[2019-12-06] MEDS: ceFAZolin 1,000 mg SDV 1000 MG IRRIGATION (12:28)
--- NOTE | 2019-12-06 13:44 | P.OP_ITS ---
Operative Report Date of procedure: December 06, 2019 Pre-op Diagnosis: Right great toe amputation Post-op diagnosis: same Procedure Done: Amputation of right great toe with primary closure Specimens removed/disposition: Right great toe Anesthesia: MAC Complications: None Condition: stable Disposition: same day Brief History: Very pleasant 54-year-old diabetic gentleman with osteomyelitis of the right great toe which is failed standard medical therapy including 6 weeks of IV antibiotics. He now has extensive destruction of the phalanges of the right great toe as noted by recent MRI. Given the progression of the disease process, currently sparing the first metatarsal, we recommended right great toe amputation. He has agreed. Proper consents have been reviewed and signed. Procedure: Mr. Schmidt was taken operating room theater placed on the OR table where he received IV conscious sedation anesthesia monitoring. His entire right foot and lower leg was sterilely prepped and draped. He has severe diabetic neuropathy with near complete anesthesia of his feet bilaterally. A semicurved incision was made circumferentially around the base of the right great toe and c arried down to the metatarsal proximal phalangeal joint. The toe was transected at this portion. Digital arteries were controlled with hemostat and Vicryl ligature. Bleeding points were controlled with judicious use of cautery. Next, a rondure was utilized to remove the articular surface of the first metatarsal. It was carried back to the point which would allow for closure of the primary incision. Wound was irrigated with large amounts of antibiotic solution. Hemostasis confirmed. The wound was initially reapproximated utilizing interrupted mattress sutures of 2-0 nylon to relieve tension along the suture line. This was followed up with interrupted 3-0 nylon suture. Sterile dressing was applied. He tolerated procedure well without discomfort. He is awakened from IV conscious sedation and taken to the outpatient surgery department in stable condition. We have counseled with his completion of the procedure. I will plan to see him in 2 days at wound care services. He will continue his previously prescribed Zyvox for now.
[2019-12-06 13:45] VITALS: BP 103/72; PULSE 67; RESP 18; TEMP 36.2; O2SAT 98
[2019-12-06 14:00] VITALS: BP 110/71; PULSE 68; RESP 18; TEMP 36.6; O2SAT 97
== END 2019-12-06 14:15 | disposition home or self-care (01) ==
PROVIDERS: PCP Nurse Practitioner Family; Visit Provider Thoracic Surgery (Cardiothoracic Vascular Surgery)
PROC: (CPT 28820; principal; 2019-12-06 10:50)
DX: M86.8X8 Other osteomyelitis, other site (principal); E11.40 Type 2 diabetes mellitus with diabetic neuropathy, unspecified; F17.210 Nicotine dependence, cigarettes, uncomplicated
CPT/HCPCS: 28820; 12345; 36415; 36416; 80048; 82962; 85025; 85610; 88305; 93005; J0690; J2001; J2250; J2370; J2704; J3010; J7030

== ENCOUNTER 2019-12-08 09:21 | Outpatient (CLI) | payer OTHER, SELFPAY | END 2019-12-08 09:22 | disposition home or self-care (01) | LOC: WOUND 09:21 | PROVIDERS: PCP Nurse Practitioner Family; Visit Provider Thoracic Surgery (Cardiothoracic Vascular Surgery) | DX: E11.621 Type 2 diabetes mellitus with foot ulcer (principal); L97.519 Non-pressure chronic ulcer of other part of right foot with unspecified severity; L97.419 Non-pressure chronic ulcer of right heel and midfoot with unspecified severity; Z89.421 Acquired absence of other right toe(s) | CPT/HCPCS: G0463; L3260 ==

== ENCOUNTER 2019-12-15 09:13 | Outpatient (CLI) | payer OTHER, SELFPAY | END 2019-12-15 09:14 | disposition home or self-care (01) | LOC: WOUND 09:14 | PROVIDERS: PCP Nurse Practitioner Family; Visit Provider Thoracic Surgery (Cardiothoracic Vascular Surgery) | DX: Z89.421 Acquired absence of other right toe(s) (principal) | CPT/HCPCS: 99212 ==

== ENCOUNTER 2019-12-21 08:21 | Outpatient (CLI) | payer OTHER, SELFPAY | END 2019-12-21 08:22 | disposition home or self-care (01) | LOC: WOUND 08:22 | PROVIDERS: PCP Nurse Practitioner Family; Visit Provider Thoracic Surgery (Cardiothoracic Vascular Surgery) | DX: Z09 Encounter for follow-up examination after completed treatment for conditions other than malignant neoplasm (principal); Z89.411 Acquired absence of right great toe | CPT/HCPCS: 99212 ==

== ENCOUNTER 2019-12-28 07:53 | Outpatient (CLI) | payer OTHER, SELFPAY | END 2019-12-28 07:54 | disposition home or self-care (01) | LOC: WOUND 07:55 | PROVIDERS: PCP Nurse Practitioner Family; Visit Provider Thoracic Surgery (Cardiothoracic Vascular Surgery) | DX: Z89.411 Acquired absence of right great toe (principal) | CPT/HCPCS: 99212 ==

== ENCOUNTER 2020-01-12 14:42 | Outpatient (CLI) | payer OTHER, SELFPAY | END 2020-01-12 14:43 | disposition home or self-care (01) | LOC: WOUND 14:42 | PROVIDERS: PCP Nurse Practitioner Family; Visit Provider Thoracic Surgery (Cardiothoracic Vascular Surgery) | DX: Z09 Encounter for follow-up examination after completed treatment for conditions other than malignant neoplasm (principal); Z89.411 Acquired absence of right great toe | CPT/HCPCS: 99212 ==

== ENCOUNTER 2021-03-19 14:10 | Outpatient (CLI) | payer OTHER, SELFPAY ==
--- NOTE | 2021-03-19 14:16 | XR_ITS ---
WS: [id number] Right ankle, 3 views, 03/19/2021 Clinical Data: R ANKLE PAIN/DECREASED MOBILITY Comparison: None. Findings: No fractures or dislocations are seen. The ankle mortise is normal. The talus and calcaneus are unrem arkable. There is soft tissue swelling over the medial and lateral malleolus.There is a large plantar spur and a small Achilles spur. XR/XR ankle RT min 3V* [id number] Impression: Soft tissue swelling over medial and lateral malleolus.
--- NOTE | 2021-03-19 14:16 | XR_ITS ---
WS: [id number] Right foot, 3 views, 03/19/2021. Clinical Data: R ANKLE PAIN/DECREASED MOBILITY Comparison: Right foot, 09/17/2019 Findings: Right great toe is absent. There is irregularity of the head of the right first metatarsal. There is irregularity of the head of the right second metatarsal and base of the right second proximal phalanx . No definite osteomyelitis is seen in these regions. The remainder of the foot shows no change. There is osteoarthritic change of the tarsal bones. There is a large plantar spur. There are no fractures o r dislocations. XR/XR foot RT min 3V* [id number] Impression: 1. Amputation of the right great toe. 2. Irregularity of the distal right first and second metatarsals consistent wit h osteoarthritis. 3. Irregularity of the base of the right second proximal phalanx. 4. Osteoarthritis of the tarsal bones.
== END 2021-03-19 14:11 | disposition home or self-care (01) ==
PROVIDERS: PCP Nurse Practitioner Family; Visit Provider Nurse Practitioner Family
DX: R26.89 Other abnormalities of gait and mobility (principal); M25.571 Pain in right ankle and joints of right foot; Z89.411 Acquired absence of right great toe; M19.071 Primary osteoarthritis, right ankle and foot; M79.89 Other specified soft tissue disorders
CPT/HCPCS: 73610; 73630

== ENCOUNTER → 2023-07-03 13:29 | Outpatient (BNVA) | payer BC, SELFPAY | PROVIDERS: PCP Nurse Practitioner Family; Visit Provider Podiatrist Foot & Ankle Surgery | DX: E11.42 Type 2 diabetes mellitus with diabetic polyneuropathy; L60.3 Nail dystrophy; E11.621 Type 2 diabetes mellitus with foot ulcer; L97.512 Non-pressure chronic ulcer of other part of right foot with fat layer exposed; G62.9 Polyneuropathy, unspecified; Z79.84 Long term (current) use of oral hypoglycemic drugs | CPT/HCPCS: 73630 ==

== ENCOUNTER 2023-07-17 18:25 | Inpatient (IN) | payer BC, SELFPAY ==
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
[2023-07-17 18:55] VITALS: BMI 31.8
--- NOTE | 2023-07-17 19:00 | P.HP_ITS ---
Providers/Chief Complaint 2 Admitting Physician: Whitney Ny MD Primary Care Provider: Carline Pitts APN Chief Complaint: Ostomylitis History of Present Illness Baldev Schmidt is a 57 year old male with past medical history of neuropathy, diabetes presented to podiatry office with wound to plantar aspect of right foot second digit. He has had a chronic ulcer for which she has been following up with podiatry at his most recent appointment he complained of malaise constitutional symptoms of fever chills nausea over the course of last 4 days. Right foot erythematous, warm, swollen. Tax Investigator evaluated patient and he was able to probe down to level of bone. Hospitalist was called for direct admit. Patient to go for or debridement in morning. Will be n.p.o. at midnight. Patient denies any other complaints at this time when seen. Patient did have a fever on Friday and then was seen by podiatry on . He said he also experienced some chills. Otherwise he had no other symptoms. Medications/Allergies Home Medications Medication Instructions Recorded Confirmed Last Taken Type diabetic shoes with 3 inserts #1 ea 07/03/23 07/18/23 Unknown Rx aspirin 81 mg tablet,delayed 81 mg PO DAILY 07/18/23 07/18/23 Unknown History release doxycycline hyclate 100 mg capsule 100 mg PO BID 07/18/23 07/18/23 Unknown History gabapentin 100 mg capsule 100 mg PO QID 07/18/23 07/18/23 Unknown History glipizide 5 mg tablet, extended 5 mg PO DAILY 07/18/23 07/18/23 Unknown History release 24 hr lisinopril 5 mg tablet 5 mg PO DAILY 07/18/23 07/18/23 Unknown History ondansetron HCl 4 mg tablet 4 mg PO Q4H PRN Nausea And Vomiting 07/18/23 07/18/23 Unknown History pantoprazole 40 mg tablet,delayed 40 mg PO BID 07/18/23 07/18/23 Unknown History release sucralfate 1 gram tablet 1 g PO QID 07/18/23 07/18/23 Unknown History tirzepatide 7.5 mg/0.5 mL 7.5 mg SUBCUT Q7D 07/18/23 07/18/23 Unknown History subcutaneous pen injector (Mounjaro) Allergies Allergy/AdvReac Type Severity Reaction Status Date / Time semaglutide [From Ozempic] Allergy ADR-Vomitin Verified 07/18/23 09:17 g PFSH Acute 2 PFSH: Medical History (Updated 07/17/23 @ 21:32 by Drake Valera DPM) Neuropathy Diabetes Social History Smoking and tobacco/nicotine status: never used tobacco/nicotine Vitals/I&O/Wt Last Vital Signs Temp 97.4 F L 07/18/23 07:55 Pulse 63 07/18/23 07:55 Resp 17 07/18/23 07:55 BP 138/80 07/18/23 07:55 Pulse Ox 97 07/18/23 07:55 O2 Del Method Room Air 07/18/23 07:55 07/17/23 07/18/23 07/18/23 22:59 06:59 14:59 Intake Total 300 / 300 270 / 570 Balance 300 / 300 270 / 570 Weight last 48 hrs Weight 102.467 kg Weight 103.51 kg Physical Exam 2 Narrative: Normal S1-S2 No acute distress Abdomen soft nontender Lungs clear to auscultation bilaterally Right foot second toe plantar surface ulcer seen with drainage. Image available in podiatry note from today. Data 07/18/23 05:16 07/18/23 05:16 Micro: Microbiology 07/17/23 19:28 Blood Culture - Preliminary Blood SPECIMEN COLLECTED 07/17/23 19:28 Blood Culture - Preliminary Blood SPECIMEN COLLECTED A&P Assessment and plan (1) Diabetes: (2) Osteomyelitis: (3) Ulcer of right foot with fat layer exposed: (4) Neuropathy: Plan #Diabetic foot ulcer #Peripheral neuropathy #Diabetes mellitus ? Hold home metformin, Janumet. ? Sliding scale insulin low-dose intensity ? Check hemoglobin A1c ? Placed on vancomycin and Zosyn. ? Would obtain MRI foot without contrast to rule out osteomyelitis after procedures complete. ? N.p.o. at midnight - Further course to be dictated after or debridement in AM. ? Consult podiatry ? Check blood cultures ? Check sed rate, CRP -Depending upon involvement patient may need a PICC line with IV antibiotics. Full code SCDs. Hold DVT prophylaxis dose pharmacological. Attestations 2 Medical Necessity Statement*: Will cross greater than 2 midnight stay for treatment of diabetic foot ulcer, Diagnoses Diabetes E11.9 Osteomyelitis M86.9 Ulcer of right foot with fat layer exposed L97.512 Neuropathy G62.9
--- NOTE | 2023-07-17 19:36 | PM.HP ---
Providers/Chief Complaint Admitting Physician: Whitney Ny MD Primary Care Provider: Carline Pitts APN Chief Complaint: Ostomylitis History of Present Illness Baldev Schmidt is a 57 year old male who was sent as a direct admit by Dr. Valera for worsening diabetic foot ulcer. Medications/Allergies Home Medications Medication Instructions Recorded Confirmed Last Taken Type metformin 500 mg tablet 500 mg PO BID 09/30/19 07/17/23 12/05/19 History linezolid 600 mg tablet 600 mg PO DAILY 12/06/19 07/17/23 12/05/19 History oxycodone-acetaminophen 5 mg-325 1 tab PO Q6H PRN pain #20 tabs 12/06/19 07/17/23 Unknown Rx mg tablet sitagliptin phos 100 mg-metformin 1 tab PO DAILY 12/06/19 07/17/23 12/05/19 History ER 1,000 mg tablet,extend rel 24h mp (Janumet XR) ciprofloxacin HCl 500 mg tablet 500 mg PO BID #14 tabs 07/03/23 07/17/23 Unknown Rx (Cipro) clindamycin HCl 300 mg capsule 300 mg PO TID #21 caps 07/03/23 07/17/23 Unknown Rx diabetic shoes with 3 inserts #1 ea 07/03/23 07/17/23 Unknown Rx doxycycline hyclate 100 mg capsule 100 mg PO BID #20 caps 07/10/23 07/17/23 Unknown Rx Allergies Allergy/AdvReac Type Severity Reaction Status Date / Time No Known Allergies Allergy Verified 07/17/23 14:32 PFSH Acute PFSH: Medical History Neuropathy Diabetes Social History Smoking and tobacco/nicotine status: never used tobacco/nicotine Coding Level of Care Code Acute Code for Chg Fwd
[2023-07-17] MEDS: sodium chloride 0.9% 1,000 ML 75 ML IV (19:59)
[2023-07-17 20:00] VITALS: BP 122/78; PULSE 80; RESP 17; TEMP 37.1; O2SAT 96
[2023-07-17] MEDS: vancomycin 1,500 MG/300 ML PIGGYBACK 200 MG IV (20:00)
[2023-07-17 20:27] LABS: Erythrocyte Sedimentation Rate 91 mm/hr (0-10)
[2023-07-17 20:54] LABS: Lactic Sepsis W/Reflex 1.5 mmol/L (0.5-2.2)
[2023-07-17 21:03] LABS: Estmated Average Glucose 146; Hemoglobin A1C 6.7 % (4.0-6.0)
[2023-07-17 21:08] LABS: Procalcitonin 0.09 ng/mL (0-0.5); Thyroid Stimulating Hormone 0.48 uIU/mL (0.27-4.20)
[2023-07-17 21:18] LABS: C Reactive Protein 119.5 mg/L (0.0-4.9)
--- NOTE | 2023-07-17 21:28 | P.CONIM_ITS ---
Providers/Reason For Consult 2 Consulting Physician/Specialty*: Dr. Drake Valera, D.P.M./podiatry Reason for Consult*: Right foot second digit osteomyelitis Attending Physician: Whitney Ny MD Primary Care Provider: Carline Pitts APN History of Present Illness History of Present Illness Baldev Schmidt is a 57 year old male who presented to my clinic today July 17, 2023 with complaint of new wound to plantar aspect of right foot second digit. Patient has been dealing with chronic ulceration to the dorsum of the right foot second digit. However, and using crest pad he has developed a new wound to the plantar aspect of the second digit. Patient also endorses general malaise, constitutional symptoms with fever, chills, nausea over the course of the past few days. His right foot is also red hot and swollen. He presented to clinic today for evaluation due to the new wound. Upon evaluation in clinic patient's new ulceration was noted to be down to the level of bone with the bone test indicative of clinical osteomyelitis. Malodor was also present with erythema extending onto the dorsum of the foot concerning for underlying abscess. The patient was directly admitted to the hospital for IV antibiotics and for surgical debridement with likely involvement of second digit amputation of the right foot. Review of Systems 2 General: Reports: 10 or more systems reviewed and unremarkable except in HPI and below Const: Denies: fever(s), chills, body aches or change in appetite Eyes: Denies: change in vision or blurry vision Card: Denies: chest pain, palpitations or irregular heart rhythm Resp: Denies: dyspnea GI: Denies: abdominal pain, nausea, vomiting or diarrhea Musc: Reports: joint stiffness Skin/Breast: Reports: non-healing lesions and lesions Neuro: Reports: numbness in extremities Medications/Allergies Home Medications Medication Instructions Recorded Confirmed Last Taken Type metformin 500 mg tablet 500 mg PO BID 09/30/19 07/17/23 12/05/19 History linezolid 600 mg tablet 600 mg PO DAILY 12/06/19 07/17/23 12/05/19 History oxycodone-acetaminophen 5 mg-325 1 tab PO Q6H PRN pain #20 tabs 12/06/19 07/17/23 Unknown Rx mg tablet sitagliptin phos 100 mg-metformin 1 tab PO DAILY 12/06/19 07/17/23 12/05/19 History ER 1,000 mg tablet,extend rel 24h mp (Janumet XR) ciprofloxacin HCl 500 mg tablet 500 mg PO BID #14 tabs 07/03/23 07/17/23 Unknown Rx (Cipro) clindamycin HCl 300 mg capsule 300 mg PO TID #21 caps 07/03/23 07/17/23 Unknown Rx diabetic shoes with 3 inserts #1 ea 07/03/23 07/17/23 Unknown Rx doxycycline hyclate 100 mg capsule 100 mg PO BID #20 caps 07/10/23 07/17/23 Unknown Rx Allergies Allergy/AdvReac Type Severity Reaction Status Date / Time No Known Allergies Allergy Verified 07/17/23 14:32 Current Medications Generic Name Dose Route Start Last Admin Trade Name Ammonq PRN Reason Stop Dose Admin Sodium Chloride 1,000 mls @ 75 mls/hr 07/17/23 19:00 07/17/23 19:59 Sodium Chloride 0.9% IV 75 mls/hr .[id number] LUDMILA Administration Vancomycin/PEG/NADA/Lysine/Water 1,500 mg in 300 mls @ 200 mls/hr 07/17/23 19:30 07/17/23 20:00 Vancocin IV 200 mls/hr Q12H LUDMILA Administration PFSH Acute 2 PFSH: Medical History (Updated 07/17/23 @ 21:32 by Drake Valera DPM) Neuropathy Diabetes Social History Smoking and tobacco/nicotine status: never used tobacco/nicotine Vitals/I&O/Wt Last Vital Signs Temp 98.8 F 07/17/23 20:00 Pulse 80 07/17/23 20:00 Resp 17 07/17/23 20:00 BP 122/78 07/17/23 20:00 Pulse Ox 96 07/17/23 20:00 O2 Del Method Room Air 07/17/23 20:49 Weight last 48 hrs Weight 228 lb 3.2 oz Physical Exam 2 Narrative: BELOW IS A FOCUSED LOWER EXTREMITY EXAM GENERAL: A&O x 3 VASCULAR: DP/PT pulses diminished with delayed capillary refill DERMATOLOGICAL: Diffuse plantar xerosis to bilateral feet. Clean, dry interspaces bilaterally. Thickened, elongated, dystrophic, discolored nails x10 with subungual debris. Digital hair is absent. Distal digits are cool to touch. Distal skin is thin and shiny with ruborous appearance full-thickness ulceration dorsal aspect of second digit overlying PIPJ measuring 1.0 x 0.5 x 0.1 cm with 100% granular base. Full-thickness ulceration to plantar aspect of right second digit with tendon exposed. Positive probe to bone, malodor and erythema surrounding the streaking to the mid diaphysis of the metatarsal. MUSCULOSKELETAL: Ankle joint and hindfoot range of motion within normal limits bilaterally. No tenderness with palpation of medial, lateral or anterior ankle bilaterally. No tenderness with palpation of lateral ankle ligaments bilaterally. No pain with palpation of midfoot bilaterally. 5/5 muscle strength in all 4 quadrants of the lower extremity when tested against resistance. NEUROLOGICAL: Neurological sensation to the affected foot and ankle is diminished through L4-S1 dermatomes via 10g SWMF, diminished sensation extends proximally to the level of the midfoot Data Micro: Microbiology 07/17/23 19:28 Blood Culture - Preliminary Blood SPECIMEN COLLECTED 07/17/23 19:28 Blood Culture - Preliminary Blood SPECIMEN COLLECTED A&P Assessment and plan (1) Ulcer of right foot with fat layer exposed: (2) Osteomyelitis: (3) Diabetes: (4) Neuropathy: Plan -Right hallux second digit ulceration with osteomyelitis and probable abscess formation -Labs and vitals reviewed -WBC pending -ESR 91 -CRP 119 -VSS -Abx Vanco/Zosyn -Diet: N.p.o. at midnight for procedure 07/18/2023 -Plan for right foot incision and drainage with possible second digit amputation and removal of nonviable tissue and bone -Weight bearing: Weightbearing as tolerated to right foot transfers only -Dressings: Podiatry will perform dressing changes -Continue current Abx therapy until ID and Sensitivity results -Trend labs -Discharge plan: To be determined. Intraoperative findings will determine discharge with PICC line versus oral antibiotics -Podiatry will continue to round on patient daily and provide recommendations Consult Attestations 2 Medical Necessity Statement: Right foot second digit osteomyelitis requiring IV antibiotics and surgical debridement Coding Level of Care Code Acute Code for Chg Fwd Diagnoses Ulcer of right foot with fat layer exposed L97.512 Osteomyelitis M86.9 Diabetes E11.9 Neuropathy G62.9
[2023-07-17 22:36] LABS: Glucose Point of Care 230 mg/dL (70-110)
[2023-07-17] MEDS: insulin lispro 100 unit/1 mL SUBCUT (22:43)
[2023-07-17] MEDS: piperacillin-tazobactam 3.375 GM in sodium chloride 0.9% (plus) 50 ML IV (22:43)
[2023-07-18] VITALS (15 sets, daily range): BP systolic 93–146; BP diastolic 55–89; PULSE 51–90; RESP 14–18; TEMP 36–36.7; O2SAT 94–98; BMI 31.5
[2023-07-18 05:34] LABS: Basophils % 0.1 %; Eosinophils % 0.2 %; Hematocrit 37.5 % (37-53); Lymphocytes # 1.5 10^3/uL (0.8-4.8); Lymphocytes % 17.4 %; Mean Corpuscular HGB Conc 33.3 g/dL (30-55); Mean Corpuscular Hemoglobin 26.7 pg (27-33); Monocytes # 0.4 10^3/uL (0.2-0.9); Monocytes % 4.8 %; Neutrophils # 6.73 10^3/uL (1.8-7.7); Nucleated Red Blood Cells % 0 %; Platelet Count 226 10^3/cmm (157-399); Red Blood Count 4.69 10^6/uL (3.85-5.65); Red Cell Distribution Width 12.9 % (12.1-15.1); White Blood Count 8.74 10^3/uL (3.29-11.43)
[2023-07-18] MEDS: piperacillin-tazobactam 3.375 GM in sodium chloride 0.9% (plus) 50 ML IV ×3 (05:45→22:08)
[2023-07-18 05:51] LABS: INR 1.04 (0.8-1.2)
[2023-07-18 05:59] LABS: Alanine Aminotransferase 13 U/L (0-41); Albumin Level 3.4 g/dL (3.5-5.2); Alkaline Phosphatase 76 U/L (40-130); Aspartate Amino Transferase 12 U/L (0-40); Blood Urea Nitrogen 12 mg/dL (6-20); Calcium 8.7 mg/dL (8.5-10.5); Carbon Dioxide 23 mmol/L (22-29); Chloride 102 mmol/L (98-107); Globulin 4.2 g/dL (1.3-4.6); Glomerular Filtration Rate 87.3 mL/min (90-130); Glucose 223 mg/dL (65-115); Osmolality Calculated 287 mOsm/kg (285-295); Sodium 135 mmol/L (136-145); Total Bilirubin 0.3 mg/dL (0.15-1.2); Total Protein 7.6 g/dL (6.6-8.7)
[2023-07-18 06:56] LABS: Glucose Point of Care 196 mg/dL (70-110)
--- NOTE | 2023-07-18 07:49 | P.PN_ITS ---
Subjective 2 Subjective: Patient seen at bedside this morning. Resting comfortably. Patient is NPO. Patient to be taken to the OR today at 11 AM for incision and drainage right foot and second digit amputation. Vitals/I&O/Wt Last Vital Signs Temp 97.8 F 07/18/23 04:00 Pulse 90 07/18/23 04:00 Resp 17 07/18/23 04:00 BP 130/69 07/18/23 04:00 Pulse Ox 98 07/18/23 04:00 O2 Del Method Room Air 07/18/23 04:00 07/17/23 07/18/23 07/18/23 22:59 06:59 14:59 Intake Total 300 / 300 270 / 570 Balance 300 / 300 270 / 570 Weight last 48 hrs Weight 225 lb 14.4 oz Weight 228 lb 3.2 oz Physical Exam 2 Narrative: BELOW IS A FOCUSED LOWER EXTREMITY EXAM GENERAL: A&O x 3 VASCULAR: DP/PT pulses diminished with delayed capillary refill DERMATOLOGICAL: Diffuse plantar xerosis to bilateral feet. Clean, dry interspaces bilaterally. Thickened, elongated, dystrophic, discolored nails x10 with subungual debris. Digital hair is absent. Distal digits are cool to touch. Distal skin is thin and shiny with ruborous appearance full-thickness ulceration dorsal aspect of second digit overlying PIPJ measuring 1.0 x 0.5 x 0.1 cm with 100% granular base. Full-thickness ulceration to plantar aspect of right second digit with tendon exposed. Positive probe to bone, malodor and erythema surrounding the streaking to the mid diaphysis of the metatarsal. MUSCULOSKELETAL: Ankle joint and hindfoot range of motion within normal limits bilaterally. No tenderness with palpation of medial, lateral or anterior ankle bilaterally. No tenderness with palpation of lateral ankle ligaments bilaterally. No pain with palpation of midfoot bilaterally. 5/5 muscle strength in all 4 quadrants of the lower extremity when tested against resistance. NEUROLOGICAL: Neurological sensation to the affected foot and ankle is diminished through L4-S1 dermatomes via 10g SWMF, diminished sensation extends proximally to the level of the midfoot Data 07/18/23 05:16 07/18/23 05:16 Micro: Microbiology 07/17/23 19:28 Blood Culture - Preliminary Blood SPECIMEN COLLECTED 07/17/23 19:28 Blood Culture - Preliminary Blood SPECIMEN COLLECTED A&P Assessment and plan (1) Ulcer of right foot with fat layer exposed: (2) Osteomyelitis: (3) Diabetes: (4) Neuropathy: Plan -Right hallux second digit ulceration with osteomyelitis and probable abscess formation -Labs and vitals reviewed -WBC 8.74 -ESR 91 -CRP 119 -VSS -Abx Vanco/Zosyn -Diet: N.p.o. for procedure today -Plan for right foot incision and drainage with possible second digit amputation and removal of nonviable tissue and bone -Weight bearing: Weightbearing as tolerated to right foot transfers only -Dressings: Podiatry will perform dressing changes -Continue current Abx therapy until ID and Sensitivity results -Trend labs -Discharge plan: To be determined. Intraoperative findings will determine discharge with PICC line versus oral antibiotics -Podiatry will continue to round on patient daily and provide recommendations Attestations 2 Medical Necessity Statement*: Right foot second digit osteomyelitis necessitating IV antibiotics and surgical debridement Coding Level of Care Code Acute Code for [facility] Fwd Diagnoses Ulcer of right foot with fat layer exposed L97.512 Osteomyelitis M86.9 Diabetes E11.9 Neuropathy G62.9
--- NOTE | 2023-07-18 07:51 | P.ANESASSM_ITS ---
Pre-Anesthetic Assessment Height/Weight: Height 1.8 m Weight 102.467 kg Temp Pulse Resp BP Pulse Ox O2 Del Method 97.8 F 90 17 130/69 98 Room Air 07/18/23 04:00 07/18/23 04:00 07/18/23 04:00 07/18/23 04:00 07/18/23 04:00 07/18/23 04:00 Operation Date: 07/18/23 11:00 Proposed Procedures p Amputation Toe/s- 2nd toe(Right) - Drake Valera DPM Familial anesthetic complications: none Was Beta Hazel taken within 24 hours: N/A Was Clonidine taken within 24 hours: N/A Last intake: Intake Last Liquid Date 07/18/23 Last Solid Date 07/18/23 Social No alcohol and No tobacco Exam alert, oriented x 3, clear to auscultation bilaterally and regular rate & rhythm Airway Submandibular: within normal limits Cervical ROM: within normal limits Mallampati: Class II CV/HEM Coronary Artery Disease Metabolic Diabetes Mellitus Neuropsych Neuropathy Anesthetic Plan ASA status: 3 Anesthesia: MAC Medications/Allergies Home Medications Medication Instructions Recorded Confirmed Last Taken Type metformin 500 mg tablet 500 mg PO BID 09/30/19 07/17/23 12/05/19 History linezolid 600 mg tablet 600 mg PO DAILY 12/06/19 07/17/23 12/05/19 History oxycodone-acetaminophen 5 mg-325 1 tab PO Q6H PRN pain #20 tabs 12/06/19 07/17/23 Unknown Rx mg tablet sitagliptin phos 100 mg-metformin 1 tab PO DAILY 12/06/19 07/17/23 12/05/19 History ER 1,000 mg tablet,extend rel 24h mp (Janumet XR) ciprofloxacin HCl 500 mg tablet 500 mg PO BID #14 tabs 07/03/23 07/17/23 Unknown Rx (Cipro) clindamycin HCl 300 mg capsule 300 mg PO TID #21 caps 07/03/23 07/17/23 Unknown Rx diabetic shoes with 3 inserts #1 ea 07/03/23 07/17/23 Unknown Rx doxycycline hyclate 100 mg capsule 100 mg PO BID #20 caps 07/10/23 07/17/23 Unknown Rx Allergies Allergy/AdvReac Type Severity Reaction Status Date / Time No Known Allergies Allergy Verified 02/15/24 14:32 Current Medications Generic Name Dose Route Start Last Admin Trade Name Rolan PRN Reason Stop Dose Admin Piperacillin Sod/Tazobactam 50 mls @ 12.5 mls/hr 07/17/23 21:00 07/18/23 05:45 Sod 3.375 gm/ Sodium Chloride IV 12.5 mls/hr Q8H LUDMILA Administration Protocol Sodium Chloride 1,000 mls @ 75 mls/hr 07/17/23 19:00 07/17/23 19:59 Sodium Chloride 0.9% IV 75 mls/hr .[id number] LUDMILA Administration Insulin Human Lispro 0 unit 07/17/23 21:00 07/17/23 22:43 Insulin Lispro 100 Unit/1 Ml SUBCUT 6 unit WM&BEDTIME LUDMILA Administration Protocol [facility] Anesthesia Medical History (Updated 07/17/23 @ 21:32 by Drake Valera DPM) Neuropathy Diabetes Social History Smoking and tobacco/nicotine status: never used tobacco/nicotine Data Anesthesia 07/18/23 05:16 07/18/23 05:16 Short CBC 07/18/23 Range/Units 05:16 WBC 8.74 (3.29-11.43) 10^3/uL Hgb 12.50 (11.27-16.99) g/dL Hct 37.5 (37-53) % MCV 80.0 L (82-101) fl Plt Count 226 (157-399) 10^3/cmm Neut % (Auto) 77.0 % Neut # (Auto) 6.73 (1.8-7.7) 10^3/uL BMP 07/18/23 05:16 Sodium 135 L Potassium 4.0 Chloride 102 Carbon Dioxide 23 BUN 12 Creatinine 0.9 Glucose 223 H Calcium 8.7 Liver Function 07/18/23 Range/Units 05:16 Total Bilirubin 0.3 (0.15-1.2) mg/dL AST 12 (0-40) U/L ALT 13 (0-41) U/L Alkaline Phosphatase 76 (40-130) U/L Albumin 3.4 L (3.5-5.2) g/dL Coags 07/17/23 07/18/23 19:28 05:16 ESR 91 H PT 14.00 INR 1.04 C-Reactive Protein 119.5 H Microbiology 07/17/23 19:28 Blood Culture - Preliminary Blood SPECIMEN COLLECTED 07/17/23 19:28 Blood Culture - Preliminary Blood SPECIMEN COLLECTED Cardiac Studies: 2 No Data to Display
[2023-07-18] MEDS: sennosides-docusate Tablet 2 TAB PO ×2 (09:03→17:16)
[2023-07-18] MEDS: vancomycin 1,500 MG/300 ML PIGGYBACK 200 MG IV ×2 (09:04→22:39)
[2023-07-18] MEDS: insulin lispro 100 unit/1 mL SUBCUT ×3 (09:09→22:39)
--- NOTE | 2023-07-18 09:25 | PC.CHAP ---
Pastoral Care Encounter/Spiritual Assessment Type of Contact [] Declined retrimmer visit [] Patient/Family/Request visit [] Outpatient visit [] Follow-up visit [] Physician referral [] Code/Alert [x] Routine visit [] Staff referral [] Actively dying [] Patient sleeping [x] Family support [] [] Out of room [] Palliative care [] [] Receiving care in room [] Pre-surgical visit [] Trauma [] Long length of stay [] ICU visit [] Other: Relational/Emotional Strength [x] Patient feels connected with others/family/visitors/staff [] Distress [] Loneliness/isolation [] Abandonment Spirituality of Patient [x] Person of Keyla [] Attends Adventism of their Keyla [x] Believes in Prayer [] Reads Bible or Latter Day materials [] There are Spiritual issues to be addressed Fire Claims Adjuster Interventions [x] Prayer [] Active listening [] Non-anxious presence [x] Spiritual/emotional support [] Crisis/trauma care [] Spiritual counseling [] Bereavement support [] Provided bereavement packet [] Provided Bible/devotional materials [] Provided toy/stuffed animal, coloring book to patient or family member [] Provided Communion [] Anointing/[place] [] Salvation [x] Completed spiritual assessment [] Other: Impact on Illness or Injury [] Angry [] Fearful [] Anxious [] Often cries [] Exhaustion [] Unable to work [] Unable to attend confucianism [] Unable to walk/stand [] Unable to read [] Unable to drive [] Unable to eat/drink [] Unable to sleep [] Unable to be with family [] Patient intubated [] Other: Summary Time spent with patient 5 min
--- NOTE | 2023-07-18 10:52 | P.HPUD_ITS ---
Surgery/Procedure H&P Update DATE OF PROCEDURE: July 18, 2023 DATE H&P PERFORMED: 07/18/23 H&P UPDATE INFORMATION: I have reviewed H&P completed within last 30 days, I have examined patient prior to procedure, No changes to prior documentation and H&P is in [facility] EMR on date indicated PLANNED PROCEDURE: Operation Date: 07/18/23 11:00 Proposed Procedures p Amputation Toe/s- 2nd toe(Right) - Drake Valera DPM
[2023-07-18] MEDS: BUPivacaine 0.5% INJ 30 mL INJECTION (11:40)
--- NOTE | 2023-07-18 11:51 | P.PN_ITS ---
Subjective 2 Subjective: seen this morning going for debridement at 11 Vitals/I&O/Wt Last Vital Signs Temp 97.4 F L 07/18/23 10:22 Pulse 69 07/18/23 10:22 Resp 18 07/18/23 10:22 BP 133/81 07/18/23 10:22 Pulse Ox 97 07/18/23 10:22 O2 Del Method Room Air 07/18/23 10:22 07/17/23 07/18/23 07/18/23 22:59 06:59 14:59 Intake Total 300 / 300 270 / 570 300 / 300 Balance 300 / 300 270 / 570 300 / 300 Weight last 48 hrs Weight 102.467 kg Weight 103.51 kg Physical Exam 2 Narrative: Normal S1-S2 No acute distress Abdomen soft nontender Lungs clear to auscultation bilaterally Right foot not examined Data 07/18/23 05:16 07/18/23 05:16 Micro: Microbiology 07/17/23 19:28 Blood Culture - Preliminary Blood SPECIMEN COLLECTED 07/17/23 19:28 Blood Culture - Preliminary Blood SPECIMEN COLLECTED A&P Assessment and plan (1) Diabetes: (2) Osteomyelitis: (3) Ulcer of right foot with fat layer exposed: (4) Neuropathy: Plan #Diabetic foot ulcer #Peripheral neuropathy #Diabetes mellitus ? Hold home metformin, Janumet. ? Sliding scale insulin low-dose intensity ? hemoglobin A1c 6.7 ? Placed on vancomycin and Zosyn. ? Would obtain MRI foot without contrast to rule out osteomyelitis after procedures complete. ? N.p.o. at midnight - Further course to be dictated after or debridement in AM. ? Consult podiatry ? Check blood cultures ? sed rate elevated, CRP elevated -Depending upon involvement patient may need a PICC line with IV antibiotics. - Continue above plan today. Full code SCDs. Hold DVT prophylaxis dose pharmacological. Attestations 2 Medical Necessity Statement*: Will cross greater than 2 midnight stay for treatment of diabetic foot ulcer, Diagnoses Diabetes E11.9 Osteomyelitis M86.9 Ulcer of right foot with fat layer exposed L97.512 Neuropathy G62.9
--- NOTE | 2023-07-18 11:54 | PM.OP ---
Operative Report Date of procedure: July 18, 2023 Pre-op diagnosis: Osteomyelitis right foot second digit Post-op diagnosis: Same Post-op findings: Degenerative changes of right foot second digit proximal phalanx. Small abscess at the level of the proximal phalanx base Procedure done: Right foot second edge amputation Specimens removed/disposition: Aerobic and anaerobic culture sent to micro for ID and sensitivity Pathology: Right foot second digit sent to pathology as surgical specimen Surgeon: Drake Valera DPM Endless Belt Finisher: GEOR[place] Estimated blood loss: 5 cc 16 minutes Complications: None Findings: See above Procedure: Patient is a 57-year-old male that has a history of chronic ulceration right foot second digit. The patient has had the aforementioned chief complaint for some time. Conservative treatment measures have been attempted and the patient has opted for surgical intervention at this time. The extent of the ulceration has now involves the bone with clinical signs of osteomyelitis. The findings necessitate surgical intervention in the form of right foot second digit amputation A lengthy discussion regarding the procedure, including risks and complications has been had with the patient and is noted in the recent clinic note. Written and verbal consent have been obtained. All patient questions have been answered to the patient?s satisfaction. No written or verbal guarantees have been given or implied. The patient has been NPO since midnight. The history has been reviewed and the history and physical is current. The signed consent was confirmed and placed in the patient chart. Patient imaging has been reviewed and is consistent with the diagnosis. Under mild sedation, the patient was brought into the operating room and on the gurney in the supine position. IV antibiotics were given by the anesthesia team as preoperative surgical prophylaxis. IV sedation was then performed by the anesthesiateam. A local field block was performed using 0.5% Marcaine plain A pneumatic tourniquet was then placed about the right ankle. The operative extremity was then prepped and draped in the usual fashion. The extremity was then elevated and exsanguinated before the tourniquet was inflated to 250 mmHg. After inflation, the following procedure was then performed. Attention was directed to the right foot second digit where a full-thickness ulceration with tendon exposed and positive probe to bone was noted. Malodor was present with active serous drainage. A 15 blade was used to make an elliptical incision around the digit base. Dissection was carried down through subcutaneous and superficial fascia to the level of the metatarsophalangeal joint. The digit was disarticulated at the metatarsophalangeal joints and passed from the operative field as specimen. Small amount of fibrotic tissue was noted to be surrounding the base the proximal phalanx of the articulation site. This was removed using a 15 blade. The head of the second metatarsal show degenerative changes. The metatarsal head failed to demonstrate smooth articular surfaces dorsally. Upon further inspection this appeared to be more arthritic changes with dorsal spurring rather than changes of osteomyelitis. However, cannot rule out osteomyelitic changes at this level. The remaining tissues appeared healthy and viable in nature. Cultures both aerobic and anaerobic were taken at this point in sent to micro for ID and sensitivity. No further abscess or necrotic tissue was visualized. The site was then irrigated with copious amounts of sterile saline via pulse lavage. The incision site was then closed using 2-0 Prolene in simple erupted fashion. The incision site was dressed with Xeroform, 4 x 4 gauze, Kerlix, Obinna bandage before being placed in a postop shoe. The tourniquet was let down and good hyperemic response was noted to all remaining digits of the right foot The patient tolerated the procedure and anesthesia well and without complication. The patient was transported from the operating room to the recovery room with vital signs stable and vascular status intact to all remaining digits of the right foot. Thepatient was instructed to remain weightbearing as tolerated in postop shoe to the operative extremity, to keep surgical dressing clean, dry and intact. The patient will be transferred back to the floor once anesthesia criteria is met. I will continue to round on and follow the patient in the inpatientsetting and provide recommendations to stabilize the patient for discharge. Based on intraoperative findings alone I believe it prudent to have PICC line placed in the event of osteomyelitis of the metatarsal head. This will be further evaluated with MRI of the right foot.
--- NOTE | 2023-07-18 12:22 | ANE.PACU2 ---
Inpatient post-anesthesia follow up: Airway intact: Yes Vital signs: Temperature 97.4 F Pulse Rate 72 Respiratory Rate 16 Blood Pressure 112/64 Pulse Oximetry 96 Oxygen Delivery Me thod Room Air Oxygen Flow Rate Fraction of Inspir ed Oxygen Hydration adequate: Yes Nausea and vomiting: No Pain level: 1 Mental status: Baseline
[2023-07-18] MEDS: sodium chloride 0.9% 1,000 ML 75 ML IV (12:41)
[2023-07-18 16:44] LABS: Glucose Point of Care 205 mg/dL (70-110)
[2023-07-18 22:16] LABS: Glucose Point of Care 146 mg/dL (70-110)
[2023-07-19] VITALS: BP 117/68; PULSE 72; RESP 16; TEMP 36.9; O2SAT 97
[2023-07-19] MEDS: sodium chloride 0.9% 1,000 ML 75 ML IV ×2 (01:45→18:27)
[2023-07-19 03:03] LABS: Basophils % 0.3 %; Eosinophils # 0.3 10^3/uL (0.0-0.8); Eosinophils % 3.8 %; Hematocrit 37.6 % (37-53); Lymphocytes # 2.6 10^3/uL (0.8-4.8); Lymphocytes % 29.3 %; Mean Corpuscular HGB Conc 32.4 g/dL (30-55); Mean Corpuscular Hemoglobin 26.3 pg (27-33); Mean Platelet Volume 9.9 fL (7.4-10.4); Monocytes # 0.5 10^3/uL (0.2-0.9); Monocytes % 5.6 %; Neutrophils # 5.37 10^3/uL (1.8-7.7); Neutrophils % 60.5 %; Nucleated Red Blood Cells % 0 %; Platelet Count 270 10^3/cmm (157-399); Red Blood Count 4.64 10^6/uL (3.85-5.65); Red Cell Distribution Width 12.9 % (12.1-15.1); White Blood Count 8.88 10^3/uL (3.29-11.43)
[2023-07-19 03:23] LABS: Blood Urea Nitrogen 11 mg/dL (6-20); Calcium 8.5 mg/dL (8.5-10.5); Carbon Dioxide 23 mmol/L (22-29); Chloride 100 mmol/L (98-107); Glomerular Filtration Rate 87.3 mL/min (90-130); Glucose 153 mg/dL (65-115); Magnesium 1.8 mg/dL (1.7-2.3); Osmolality Calculated 280 mOsm/kg (285-295); Sodium 134 mmol/L (136-145)
[2023-07-19 03:27] LABS: Anion Gap 15.1 (5-19); Potassium 4.1 mmol/L (3.5-5.1)
[2023-07-19 04:00] VITALS: BP 136/87; PULSE 60; RESP 16; TEMP 37; O2SAT 97
[2023-07-19] MEDS: piperacillin-tazobactam 3.375 GM in sodium chloride 0.9% (plus) 50 ML IV ×2 (04:57→12:21)
[2023-07-19 06:50] LABS: Glucose Point of Care 164 mg/dL (70-110)
[2023-07-19 08:25] VITALS: BP 132/73; PULSE 74; RESP 17; TEMP 36.4; O2SAT 96
[2023-07-19] MEDS: sennosides-docusate Tablet 2 TAB PO ×2 (08:29→18:26)
[2023-07-19] MEDS: insulin lispro 100 unit/1 mL SUBCUT ×4 (08:29→22:44)
[2023-07-19 09:04] LABS: Vancomycin Trough 16.3 ug/mL (10-15)
[2023-07-19] MEDS: vancomycin 1,500 MG/300 ML PIGGYBACK 200 MG IV ×2 (09:51→22:44)
--- NOTE | 2023-07-19 10:50 | P.PN_ITS ---
Subjective 2 Subjective: Patient seen at bedside this morning. Resting comfortably. No overnight events. MRI pending. Cultures pending. Vitals/I&O/Wt Last Vital Signs Temp 97.6 F 07/19/23 08:25 Pulse 74 07/19/23 08:25 Resp 17 07/19/23 08:25 BP 132/73 07/19/23 08:25 Pulse Ox 96 07/19/23 08:25 O2 Del Method Room Air 07/19/23 08:25 07/18/23 07/19/23 07/19/23 22:59 06:59 14:59 Intake Total 530 / 1930 1330 / 3260 530 / 530 Output Total 1000 / 1005 999 / 2004 Balance -470 / 925 330 / 1255 530 / 530 Weight last 48 hrs Weight 230 lb 8 oz Weight 225 lb 14.4 oz Weight 228 lb 3.2 oz Physical Exam 2 Narrative: BELOW IS A FOCUSED LOWER EXTREMITY EXAM GENERAL: A&O x 3 VASCULAR: DP/PT pulses diminished with delayed capillary refill DERMATOLOGICAL: Right foot second digit amputation site shows incision well coapted with sutures intact. No evidence of dehiscence or signs of infection. Surrounding erythema is receded in comparison to previous evaluation. No underlying crepitus MUSCULOSKELETAL: Ankle joint and hindfoot range of motion within normal limits bilaterally. No tenderness with palpation of medial, lateral or anterior ankle bilaterally. No tenderness with palpation of lateral ankle ligaments bilaterally. No pain with palpation of midfoot bilaterally. 5/5 muscle strength in all 4 quadrants of the lower extremity when tested against resistance. NEUROLOGICAL: Neurological sensation to the affected foot and ankle is diminished through L4-S1 dermatomes via 10g SWMF, diminished sensation extends proximally to the level of the midfoot Data 07/19/23 02:15 07/19/23 02:15 Micro: Microbiology 07/17/23 19:28 Blood Culture - Preliminary Blood NEGATIVE TO DATE 07/17/23 19:28 Blood Culture - Preliminary Blood NEGATIVE TO DATE A&P Assessment and plan (1) Ulcer of right foot with fat layer exposed: (2) Osteomyelitis: (3) Diabetes: (4) Neuropathy: Plan -Right hallux second digit ulceration with osteomyelitis and probable abscess formation -Labs and vitals reviewed -WBC 8.8 -ESR 91 -CRP 119 -VSS -Cultures: Pending -Imaging: MRI pending -Abx Vanco/Zosyn -Diet: Okay for diet -Status post right foot second digit amputation. No plans for further surgical intervention during this admission. However, given intraoperative findings erosive changes of metatarsal head and inability to rule out osteomyelitis recommended PICC line and IV antibiotic therapy. Discussed with hospitalist. Awaiting blood culture results before proceeding with PICC line placement -Weight bearing: Weightbearing as tolerated to right foot transfers only -Dressings: Surgical dressing changed at bedside this morning consisting of Adaptic 4 x 4 gauze, Kerlix, Obinna manage -Continue current Abx therapy until ID and Sensitivity results -Trend labs -Discharge plan: Likely discharge home with PICC line and long-term antibiotic therapy based on intraoperative findings. Patient to go for MRI today to confirm intraoperative findings. We will evaluate MRI for evidence of osteomyelitis of second metatarsal head. -Podiatry will continue to round on patient daily and provide recommendations Attestations 2 Medical Necessity Statement*: Osteomyelitis right foot second digit necessitating IV antibiotic therapy and surgical debridement. Awaiting further Coding Level of Care Code Acute Code for [facility] Diagnoses Ulcer of right foot with fat layer exposed L97.512 Osteomyelitis M86.9 Diabetes E11.9 Neuropathy G62.9
[2023-07-19 11:50] LABS: Glucose Point of Care 193 mg/dL (70-110)
--- NOTE | 2023-07-19 12:00 | MRR_ITS ---
PROCEDURE INFORMATION: Exam: MR Right Lower Extremity Without and With Contrast; Forefoot Exam date and time: 07/19/2023 4:29 PM Age: 57 years old Clinical indication: Edema; Yes, it is localized; Prior surgery; Surgery date: Post-operative (0-2 days); Surgery type: Amputation of 2nd toe, great toe removed 2-3 years ago; Additional info: R/O osteomyelitis TECHNIQUE: Imaging protocol: MR of the right foot without and with contrast. Exam focused on the forefoot. Contrast material: MULTIHANCE; Contrast volume: 20 ml; Contrast route: INTRAVENOUS (IV); COMPARISON: MR foot RT wo/w con [id number] 11/30/2019 11:16 AM FINDINGS: Prior amputations of the great toe and 2nd toe. There is soft tissue ulceration of the forefoot medial to the 3rd toe with a 2.5 x 2.0 x 2.0 cm fluid collection suggestive of abscess. There is reactive marrow edema and enhancement of the plantar aspect of the 2nd metatarsal head. No evidence of osteomyelitis. Moderate midfoot osteoarthritis. Tarsometatarsal alignment and Lisfranc ligament are intact. Diffuse muscular denervation changes noted. MR/MR foot RT wo/w con [id number] IMPRESSION: 1. Soft tissue ulceration of the forefoot with a 2.5 cm abscess. There is reactive marrow edema and enhancement of the plantar aspect of the 2nd metatarsal head without evidence of osteomyelitis. Given that the abscess abuts the 2nd metatarsal head, there is risk for subsequent development of osteomyelitis. If there is worsening of the clinical a exam, consider follow-up MRI to reassess.
[2023-07-19 12:15] VITALS: BP 134/76; PULSE 63; RESP 18; TEMP 36.4; O2SAT 97
--- NOTE | 2023-07-19 14:03 | P.PN_ITS ---
Subjective 2 Subjective: Seen this morning. Blood cultures negative to date. Patient is awaiting MRI. Vitals/I&O/Wt Last Vital Signs Temp 97.6 F 07/19/23 12:15 Pulse 63 07/19/23 12:15 Resp 18 07/19/23 12:15 BP 134/76 07/19/23 12:15 Pulse Ox 97 07/19/23 12:15 O2 Del Method Room Air 07/19/23 12:15 07/18/23 07/19/23 07/19/23 22:59 06:59 14:59 Intake Total 530 / 1930 1330 / 3260 1310 / 1310 Output Total 1000 / 1005 999 / 2004 Balance -470 / 925 330 / 1255 1310 / 1310 Weight last 48 hrs Weight 104.553 kg Weight 102.467 kg Weight 103.51 kg Physical Exam 2 Narrative: Normal S1-S2 No acute distress Abdomen soft nontender Lungs clear to auscultation bilaterally Right foot not examined Data 07/19/23 02:15 07/19/23 02:15 Micro: Microbiology 07/18/23 11:35 Gram Stain - Final Toe - Wound Anaerobic Culture - Preliminary Wound Culture - Preliminary Gram Negative Rods 07/17/23 19:28 Blood Culture - Preliminary Blood NEGATIVE TO DATE 07/17/23 19:28 Blood Culture - Preliminary Blood NEGATIVE TO DATE A&P Assessment and plan (1) Diabetes: (2) Osteomyelitis: (3) Ulcer of right foot with fat layer exposed: (4) Neuropathy: Plan #Diabetic foot ulcer, osteomyelitis #Peripheral neuropathy #Diabetes mellitus ? Hold home metformin, Janumet. ? Sliding scale insulin low-dose intensity ? hemoglobin A1c 6.7 ? Placed on vancomycin and Zosyn. ? MRI foot without contrast to rule out osteomyelitis pending at this time. ? Consult podiatry ? Check blood cultures ? sed rate elevated, CRP elevated -Discussed with podiatry. Will place PICC line today. Patient will need 6 weeks of IV antibiotics. Once cultures are available we will decide on antibiotic therapy. For now continue on broad-spectrum. - Continue above plan today. Full code SCDs. Hold DVT prophylaxis dose pharmacological. Attestations 2 Medical Necessity Statement*: Osteomyelitis right foot second digit necessitating IV antibiotic therapy and surgical debridement. Awaiting further Diagnoses Diabetes E11.9 Osteomyelitis M86.9 Ulcer of right foot with fat layer exposed L97.512 Neuropathy G62.9
--- NOTE | 2023-07-19 15:00 | PC.NURSE ---
Single lumen PICC placed to right basilic vein. Referred to vascular access nurse for PICC placement due to osteomyelitis and need for IV antibiotics x 6 weeks. Risks and benefits discussed and informed consent obtained from patient. Right arm assessed with right basilic vein measuring 5.8 mm, straight, and apparent best choice for placement. Using sterile technique and MST, right basilic vein accessed x 1 stick. Mid-arm circumference measured 10 cm from right AC 31 cm. Trimmed cath 48 cm with 1 cm external length noted. CXR shows tip in what appears to be distal SVC, awaiting read from radiologist. Line secured with stat-lock. Insertion site covered with Biopatch and TSM. Report given to bedside nurse, Reina.
--- NOTE | 2023-07-19 15:00 | XRR_ITS ---
PROCEDURE INFORMATION: Exam: XR Chest Exam date and time: 07/19/2023 3:31 PM Age: 57 years old Clinical indication: Device placement; Picc; Additional info: Post picc insertion, derick placing on med-surg room 271. Will be ready at 1530 for TECHNIQUE: Imaging protocol: Radiologic exam of the chest. Views: 1 view. COMPARISON: CR XR chest 2V* [id number] 11/24/2019 12:16 PM FINDINGS: Tubes, catheters and devices: Right PICC line terminates at the cavoatrial junction. Lungs: Scarring noted in the right upper lung. No consolidation. Pleural spaces: Unremarkable. No pleural effusion. No pneumothorax. Heart/Mediastinum: Unremarkable. No cardiomegaly. Bones/joints: Unremarkable. XR/XR chest 1V portable [id number] IMPRESSION: Right PICC line in proper positioning.
[2023-07-19 17:10] VITALS: BP 133/89; PULSE 77; RESP 18; TEMP 36.4; O2SAT 97
[2023-07-19] MEDS: gadobenate dimeglumine 20 mL vial IV (17:35)
[2023-07-19 18:12] LABS: Glucose Point of Care 186 mg/dL (70-110)
[2023-07-19 20:00] VITALS: BP 141/83; PULSE 74; RESP 16; TEMP 36.5; O2SAT 98
[2023-07-19 21:29] LABS: Glucose Point of Care 202 mg/dL (70-110)
[2023-07-20] VITALS: BP 158/93; PULSE 72; RESP 18; TEMP 36.6; O2SAT 97
[2023-07-20] MEDS: piperacillin-tazobactam 3.375 GM in sodium chloride 0.9% (plus) 50 ML IV ×3 (00:28→13:29)
[2023-07-20 04:00] VITALS: BP 128/84; PULSE 75; RESP 18; TEMP 36.4; O2SAT 98
[2023-07-20 06:09] VITALS: BMI 32.1
[2023-07-20 06:36] LABS: Glucose Point of Care 152 mg/dL (70-110)
[2023-07-20 07:55] VITALS: BP 136/86; PULSE 60; RESP 17; TEMP 36.7; O2SAT 97
[2023-07-20] MEDS: insulin lispro 100 unit/1 mL SUBCUT ×4 (08:36→21:23)
[2023-07-20] MEDS: sennosides-docusate Tablet 2 TAB PO ×2 (08:36→17:20)
[2023-07-20] MEDS: sodium chloride 0.9% 1,000 ML 75 ML IV ×2 (08:37→21:22)
--- NOTE | 2023-07-20 09:05 | P.PN_ITS ---
Subjective 2 Subjective: Patient seen at bedside this morning. No overnight events. Resting comfortably. MRI obtained yesterday. Vitals/I&O/Wt Last Vital Signs Temp 98.1 F 07/20/23 07:55 Pulse 60 07/20/23 07:55 Resp 17 07/20/23 07:55 BP 136/86 07/20/23 07:55 Pulse Ox 97 07/20/23 07:55 O2 Del Method Room Air 07/20/23 07:55 07/19/23 07/20/23 07/20/23 22:59 06:59 14:59 Intake Total 1350 / 2660 350 / 3010 1480 / 1480 Balance 1350 / 2660 350 / 3010 1480 / 1480 Weight last 48 hrs Weight 230 lb 9.6 oz Weight 230 lb 8 oz Physical Exam 2 Narrative: BELOW IS A FOCUSED LOWER EXTREMITY EXAM GENERAL: A&O x 3 VASCULAR: DP/PT pulses diminished with delayed capillary refill DERMATOLOGICAL: Right foot second digit amputation site shows incision well coapted with sutures intact. No evidence of dehiscence or signs of infection. Surrounding erythema is receded in comparison to previous evaluation. No underlying crepitus MUSCULOSKELETAL: Ankle joint and hindfoot range of motion within normal limits bilaterally. No tenderness with palpation of medial, lateral or anterior ankle bilaterally. No tenderness with palpation of lateral ankle ligaments bilaterally. No pain with palpation of midfoot bilaterally. 5/5 muscle strength in all 4 quadrants of the lower extremity when tested against resistance. NEUROLOGICAL: Neurological sensation to the affected foot and ankle is diminished through L4-S1 dermatomes via 10g SWMF, diminished sensation extends proximally to the level of the midfoot IMAGING: MRI right foot personally interpreted by me. Fluid accumulation at distal aspect of second metatarsal consistent with postoperative hematoma formation. Abscess more unlikely given recent washout, amputation and intraoperative findings. Reactive marrow edema platnar 2nd metatarsal head. No marina erosions of metatarsal head but cannot rule out early acute osteo. Data 07/19/23 02:15 07/19/23 02:15 Micro: Microbiology 07/18/23 11:35 Gram Stain - Final Toe - Wound Anaerobic Culture - Preliminary Wound Culture - Preliminary Gram Negative Rods A&P Assessment and plan (1) Ulcer of right foot with fat layer exposed: (2) Osteomyelitis: (3) Diabetes: (4) Neuropathy: Plan -Right hallux second digit ulceration with osteomyelitis and probable abscess formation -Labs and vitals reviewed -WBC 8.8 -ESR 91 -CRP 119 -VSS -Cultures: Blood: NGTD Wound: GNR's prelim -Imaging: MRI right foot personally interpreted by me. Fluid accumulation at distal aspect of second metatarsal consistent with postoperative hematoma formation. Abscess more unlikely given recent washout, amputation and intraoperative findings. Reactive marrow edema platnar 2nd metatarsal head. No marina erosions of metatarsal head but cannot rule out early acute osteo. -Abx Vanco/Zosyn -Diet: Okay for diet -Status post right foot second digit amputation. No plans for further surgical intervention during this admission. Fluid collection on MRI is likely postoperative hematoma formation as opposed to abscess. Reactive marrow edema may be indicative of early acute osteomyelitis. Recommend PICC line and computer terminal operator antibiotics upon discharge. -Weight bearing: Weightbearing as tolerated to right foot transfers only -Dressings: Leave surgical dressing clean, dry and intact -Continue current Abx therapy until ID and Sensitivity results -Trend labs -Discharge plan: Ok to discharge home from podiatry standpoint with PICC line and 6 weeks IV antibiotics once final antibiotic recommendations are made. Leave surgical dressing clean, dry and intact until outpatient follow up with me. Patient to follow up with me in the outpatient setting early next week. -Podiatry will continue to round on patient daily and provide recommendations Attestations 2 Medical Necessity Statement*: Osteomyelitis right foot requiring surgical debridement and PICC placement for IV antibiotics Coding Level of Care Code Acute Code for [facility] Diagnoses Ulcer of right foot with fat layer exposed L97.512 Osteomyelitis M86.9 Diabetes E11.9 Neuropathy G62.9
[2023-07-20] MEDS: vancomycin 1,500 MG/300 ML PIGGYBACK 200 MG IV ×2 (10:18→22:20)
[2023-07-20 11:26] LABS: Glucose Point of Care 220 mg/dL (70-110)
[2023-07-20 11:54] VITALS: BP 141/87; PULSE 75; RESP 18; TEMP 36.4; O2SAT 97
--- NOTE | 2023-07-20 13:33 | P.PN_ITS ---
Subjective 2 Subjective: Seen this morning. He received PICC line yesterday. Bone cultures are still pending. Vitals/I&O/Wt Last Vital Signs Temp 97.6 F 07/20/23 11:54 Pulse 75 07/20/23 11:54 Resp 18 07/20/23 11:54 BP 141/87 07/20/23 11:54 Pulse Ox 97 07/20/23 11:54 O2 Del Method Room Air 07/20/23 11:54 07/19/23 07/20/23 07/20/23 22:59 06:59 14:59 Intake Total 1350 / 2660 350 / 3010 2510 / 2510 Balance 1350 / 2660 350 / 3010 2510 / 2510 Weight last 48 hrs Weight 104.598 kg Weight 104.553 kg Physical Exam 2 Narrative: Normal S1-S2 No acute distress Abdomen soft nontender Lungs clear to auscultation bilaterally Right foot not examined Data 07/19/23 02:15 07/19/23 02:15 Micro: Microbiology 07/18/23 11:35 Gram Stain - Final Toe - Wound Anaerobic Culture - Preliminary Wound Culture - Preliminary Gram Negative Rods A&P Assessment and plan (1) Diabetes: (2) Osteomyelitis: (3) Ulcer of right foot with fat layer exposed: (4) Neuropathy: Plan #Diabetic foot ulcer, osteomyelitis #Peripheral neuropathy #Diabetes mellitus ? Hold home metformin, Janumet. ? Sliding scale insulin low-dose intensity ? hemoglobin A1c 6.7 ? Placed on vancomycin and Zosyn. ? MRI foot shows 1. Soft tissue ulceration of the forefoot with a 2.5 cm abscess. There is reactive marrow edema and enhancement of the plantar aspect of the 2nd metatarsal head without evidence of osteomyelitis. Given that the abscess abuts the 2nd metatarsal head, there is risk for subsequent development of osteomyelitis. If there is worsening of the clinical a exam, consider follow-up MRI to reassess. ? Consult podiatry ? Check blood cultures ? sed rate elevated, CRP elevated -Discussed with podiatry. Will place PICC line today. Patient will need 6 weeks of IV antibiotics. Once cultures are available we will decide on antibiotic therapy. For now continue on broad-spectrum. - Continue above plan today. ? Blood culture still pending Full code SCDs. Hold DVT prophylaxis dose pharmacological. Attestations 2 Medical Necessity Statement*: Osteomyelitis right foot requiring surgical debridement and PICC placement for IV antibiotics Diagnoses Diabetes E11.9 Osteomyelitis M86.9 Ulcer of right foot with fat layer exposed L97.512 Neuropathy G62.9
[2023-07-20 15:49] VITALS: BP 160/89; PULSE 66; RESP 17; TEMP 36.4; O2SAT 97
[2023-07-20 17:04] LABS: Glucose Point of Care 165 mg/dL (70-110)
[2023-07-20] MEDS: meropenem 1,000 MG in sodium chloride 0.9% (plus) 50 ML 100 MG IV (17:51)
[2023-07-20 20:00] VITALS: BP 167/96; PULSE 70; RESP 19; TEMP 36.6; O2SAT 98
[2023-07-20 20:53] LABS: Glucose Point of Care 266 mg/dL (70-110)
[2023-07-20 22:02] LABS: Vancomycin Trough 17.1 ug/mL (10-15)
[2023-07-21] VITALS (7 sets, daily range): BP systolic 137–161; BP diastolic 81–93; PULSE 60–85; RESP 15–19; TEMP 36.4–37.1; O2SAT 95–100
[2023-07-21] MEDS: meropenem 1,000 MG in sodium chloride 0.9% (plus) 50 ML 100 MG IV ×3 (01:16→16:48)
[2023-07-21 03:21] LABS: Basophils % 0.7 %; Eosinophils # 0.4 10^3/uL (0.0-0.8); Eosinophils % 6.8 %; Hematocrit 37.3 % (37-53); Lymphocytes % 33.2 %; Mean Corpuscular HGB Conc 32.4 g/dL (30-55); Mean Corpuscular Hemoglobin 26.2 pg (27-33); Mean Corpuscular Volume 80.7 fl (82-101); Monocytes # 0.4 10^3/uL (0.2-0.9); Monocytes % 6.4 %; Neutrophils # 3.07 10^3/uL (1.8-7.7); Neutrophils % 52.1 %; Nucleated Red Blood Cells % 0 %; Platelet Count 241 10^3/cmm (157-399); Red Blood Count 4.62 10^6/uL (3.85-5.65); Red Cell Distribution Width 12.9 % (12.1-15.1)
[2023-07-21 06:59] LABS: Glucose Point of Care 159 mg/dL (70-110)
--- NOTE | 2023-07-21 07:17 | P.PN_ITS ---
Subjective 2 Subjective: Patient seen at bedside this morning. No overnight events. Resting comfortably. PICC line placed. Vitals/I&O/Wt Last Vital Signs Temp 97.6 F 07/21/23 04:00 Pulse 75 07/21/23 04:00 Resp 18 07/21/23 04:00 BP 145/87 07/21/23 04:00 Pulse Ox 97 07/21/23 04:00 O2 Del Method Room Air 07/20/23 15:49 07/20/23 07/21/23 07/21/23 22:59 06:59 14:59 Intake Total 1776.25 / 4286.25 350 / 4636.25 Balance 1776.25 / 4286.25 350 / 4636.25 Weight last 48 hrs Weight 235 lb Weight 230 lb 9.6 oz Physical Exam 2 Narrative: BELOW IS A FOCUSED LOWER EXTREMITY EXAM GENERAL: A&O x 3 VASCULAR: DP/PT pulses diminished with delayed capillary refill DERMATOLOGICAL: Right foot second digit amputation site shows incision well coapted with sutures intact. No evidence of dehiscence or signs of infection. Surrounding erythema is receded in comparison to previous evaluation. No underlying crepitus MUSCULOSKELETAL: Ankle joint and hindfoot range of motion within normal limits bilaterally. No tenderness with palpation of medial, lateral or anterior ankle bilaterally. No tenderness with palpation of lateral ankle ligaments bilaterally. No pain with palpation of midfoot bilaterally. 5/5 muscle strength in all 4 quadrants of the lower extremity when tested against resistance. NEUROLOGICAL: Neurological sensation to the affected foot and ankle is diminished through L4-S1 dermatomes via 10g SWMF, diminished sensation extends proximally to the level of the midfoot IMAGING: MRI right foot personally interpreted by me. Fluid accumulation at distal aspect of second metatarsal consistent with postoperative hematoma formation. Abscess more unlikely given recent washout, amputation and intraoperative findings. Reactive marrow edema platnar 2nd metatarsal head. No marina erosions of metatarsal head but cannot rule out early acute osteo. Data 07/21/23 03:13 07/19/23 02:15 Micro: Microbiology 07/18/23 11:35 Gram Stain - Final Toe - Wound Anaerobic Culture - Preliminary Wound Culture - Preliminary Escherichia coli esbl Strep agalactiae - (group b) A&P Assessment and plan (1) Ulcer of right foot with fat layer exposed: (2) Osteomyelitis: (3) Diabetes: (4) Neuropathy: Plan -Right hallux second digit ulceration with osteomyelitis and probable abscess formation -Labs and vitals reviewed -WBC 5.9 -ESR 91 -CRP 119 -VSS -Cultures: Blood: NGTD Wound: E. coli ESBL, sensitivity to imipenem, gentamicin; group B strep -Imaging: MRI right foot personally interpreted by me. Fluid accumulation at distal aspect of second metatarsal consistent with postoperative hematoma formation. Abscess more unlikely given recent washout, amputation and intraoperative findings. Reactive marrow edema platnar 2nd metatarsal head. No marina erosions of metatarsal head but cannot rule out early acute osteo. -Abx Vanco/Zosyn -Diet: Okay for diet -Status post right foot second digit amputation. No plans for further surgical intervention during this admission. Fluid collection on MRI is likely postoperative hematoma formation as opposed to abscess. Reactive marrow edema may be indicative of early acute osteomyelitis. Patient will require long-term IV antibiotics upon discharge -Weight bearing: Weightbearing as tolerated to right foot transfers only -Dressings: Leave surgical dressing clean, dry and intact -Continue current Abx therapy until ID and Sensitivity results -Trend labs -Discharge plan: Ok to discharge home from podiatry standpoint with PICC line and 6 weeks IV antibiotics once final antibiotic recommendations are made. LAYA report shows E. coli ESBL sensitive to imipenem, gentamicin and group B strep. leave surgical dressing clean, dry and intact until outpatient follow up with me. Patient to follow up with me in the outpatient setting early next week. -Podiatry will continue to round on patient daily and provide recommendations Attestations 2 Medical Necessity Statement*: Right foot infection necessitating surgical debridement, PICC line placement and IV antibiotic therapy Coding Level of Care Code Acute Code for [facility] Diagnoses Ulcer of right foot with fat layer exposed L97.512 Osteomyelitis M86.9 Diabetes E11.9 Neuropathy G62.9
[2023-07-21] MEDS: insulin lispro 100 unit/1 mL SUBCUT ×4 (08:42→21:28)
[2023-07-21] MEDS: sennosides-docusate Tablet 2 TAB PO ×2 (08:43→17:53)
[2023-07-21] MEDS: sodium chloride 0.9% 1,000 ML 75 ML IV ×2 (10:19→23:35)
[2023-07-21] MEDS: vancomycin 1,500 MG/300 ML PIGGYBACK 200 MG IV (10:20)
[2023-07-21 10:45] LABS: Glucose Point of Care 218 mg/dL (70-110)
[2023-07-21 11:31] LABS: Alanine Aminotransferase 17 U/L (0-41); Albumin Level 3.6 g/dL (3.5-5.2); Alkaline Phosphatase 78 U/L (40-130); Anion Gap 14.2 (5-19); Aspartate Amino Transferase 13 U/L (0-40); Blood Urea Nitrogen 10 mg/dL (6-20); Calcium 9.1 mg/dL (8.5-10.5); Carbon Dioxide 25 mmol/L (22-29); Chloride 101 mmol/L (98-107); Chol HDL Ratio 4.12 mg/dL (1.0-5.00); Cholesterol 103 mg/dL (0-200); Globulin 4.2 g/dL (1.3-4.6); Glomerular Filtration Rate 87.3 mL/min (90-130); Glucose 211 mg/dL (65-115); HDL Cholesterol 25 mg/dL (60-100); LDL Cholesterol Calculated 62 mg/dL (50-129); Osmolality Calculated 287 mOsm/kg (285-295); Potassium 4.2 mmol/L (3.5-5.1); Sodium 136 mmol/L (136-145); Total Bilirubin 0.3 mg/dL (0.15-1.2); Total Protein 7.8 g/dL (6.6-8.7); Triglycerides 80 mg/dL (0-150); VLDL Cholestrol Calculation 16 mg/dL (0-30)
[2023-07-21 11:36] LABS: Procalcitonin 0.08 ng/mL (0-0.5)
[2023-07-21 12:17] LABS: Iron 42 ug/dL (59-158); Percent Saturation 26.2 % (20-50); Total Iron Binding Capacity 160 mcg/dl; Unsaturated Iron Binding 118 ug/dL (112-347)
--- NOTE | 2023-07-21 15:25 | PM.PN ---
Subjective Subjective: No acute distress overnight. Hospital course appreciated. Seen sitting up in bed. Denies any nausea, vomiting, headache. Vitals/I&O/Wt Last Vital Signs Temp 97.7 F 07/21/23 11:53 Pulse 81 07/21/23 11:53 Resp 16 07/21/23 11:53 BP 137/91 07/21/23 11:53 Pulse Ox 95 07/21/23 11:53 O2 Del Method Room Air 07/20/23 15:49 07/21/23 07/21/23 07/21/23 06:59 14:59 22:59 Intake Total 350 / 4636.25 / 2040. Balance 350 / 4636.25 / Weight last 48 hrs Weight 106.594 kg Weight 104.598 kg Physical Exam Narrative: Normal S1-S2 No acute distress Abdomen soft nontender Lungs clear to auscultation bilaterally Right foot surgically bandaged without any soakage in boot Data 07/21/23 03:13 07/21/23 11:02 Micro: Microbiology 07/18/23 11:35 Gram Stain - Final Toe - Wound Anaerobic Culture - Preliminary Wound Culture - Final Escherichia coli esbl Strep agalactiae - (group b) A&P Assessment and plan (1) Diabetes: A1c 6.7. Patient will be discharged on continued oral glipizide and Mounjaro. Continue insulin sliding scale while in hospital. (2) Osteomyelitis: Post debridement on 07/18. Wound cultures from the OR growing ESBL E. coli and strep. Appreciate podiatry recommendations. Wound care as per podiatry team. Continue with IV meropenem for now. Stop vancomycin. Patient can be discharged on IV ertapenem for overall 6-week course for concerns for osteomyelitis. PICC line in place. (3) Ulcer of right foot with fat layer exposed: (4) Neuropathy: Plan Hypertension: Goal blood pressure less than 140/90 mmHg. Blood pressure is at goal. For now we will hold off on antihypertensives needed will restart home dose of lisinopril. Carb consistent diet Heparin 5000 every 12 for DVT prophylaxis Famotidine for PUD prophylaxis. Attestations Medical Necessity Statement*: Requires further hospitalization for management of osteomyelitis of foot post debridement while outpatient IV antibiotics are set up Diagnoses Diabetes E11.9 Osteomyelitis M86.9 Ulcer of right foot with fat layer exposed L97.512 Neuropathy G62.9
[2023-07-21] MEDS: heparin 5,000 unit/mL INJ 1 mL 5000 UNIT SUBCUT (16:00)
[2023-07-21 16:56] LABS: Glucose Point of Care 154 mg/dL (70-110)
[2023-07-21 17:34] LABS: Vitamin B12 446 pg/mL (232-1245)
[2023-07-21] MEDS: famotidine 20 mg Tablet PO (17:53)
[2023-07-21 20:32] LABS: Glucose Point of Care 233 mg/dL (70-110)
[2023-07-22] MEDS: meropenem 1,000 MG in sodium chloride 0.9% (plus) 50 ML 100 MG IV (02:31)
[2023-07-22] MEDS: heparin 5,000 unit/mL INJ 1 mL 5000 UNIT SUBCUT (02:31)
[2023-07-22 04:00] VITALS: BP 117/72; PULSE 73; RESP 17; TEMP 36.4; O2SAT 99
[2023-07-22 05:39] LABS: Basophils % 0.6 %; Eosinophils # 0.4 10^3/uL (0.0-0.8); Eosinophils % 5.9 %; Hematocrit 39.3 % (37-53); Lymphocytes # 2.1 10^3/uL (0.8-4.8); Lymphocytes % 32.9 %; Mean Corpuscular HGB Conc 32.8 g/dL (30-55); Mean Corpuscular Hemoglobin 26.5 pg (27-33); Mean Corpuscular Volume 80.7 fl (82-101); Mean Platelet Volume 9.2 fL (7.4-10.4); Monocytes # 0.4 10^3/uL (0.2-0.9); Monocytes % 5.5 %; Neutrophils # 3.46 10^3/uL (1.8-7.7); Neutrophils % 54.2 %; Nucleated Red Blood Cells % 0 %; Platelet Count 252 10^3/cmm (157-399); Red Blood Count 4.87 10^6/uL (3.85-5.65); Red Cell Distribution Width 12.8 % (12.1-15.1); White Blood Count 6.39 10^3/uL (3.29-11.43)
[2023-07-22 06:16] LABS: Alanine Aminotransferase 18 U/L (0-41); Albumin Level 3.3 g/dL (3.5-5.2); Alkaline Phosphatase 75 U/L (40-130); Aspartate Amino Transferase 17 U/L (0-40); Blood Urea Nitrogen 14 mg/dL (6-20); Calcium 9.2 mg/dL (8.5-10.5); Carbon Dioxide 24 mmol/L (22-29); Chloride 102 mmol/L (98-107); Globulin 4.2 g/dL (1.3-4.6); Glomerular Filtration Rate 87.3 mL/min (90-130); Glucose 150 mg/dL (65-115); Osmolality Calculated 285 mOsm/kg (285-295); Sodium 136 mmol/L (136-145); Total Bilirubin 0.3 mg/dL (0.15-1.2); Total Protein 7.5 g/dL (6.6-8.7)
[2023-07-22 06:17] LABS: Anion Gap 14.5 (5-19); Magnesium 1.8 mg/dL (1.7-2.3); Potassium 4.5 mmol/L (3.5-5.1)
[2023-07-22 06:46] LABS: Glucose Point of Care 171 mg/dL (70-110)
--- NOTE | 2023-07-22 07:41 | P.PN_ITS ---
Subjective 2 Subjective: Patient seen at bedside this morning. No overnight events. Resting comfortably. PICC line placed. Vitals/I&O/Wt Last Vital Signs Temp 97.5 F L 07/22/23 04:00 Pulse 73 07/22/23 04:00 Resp 17 07/22/23 04:00 BP 117/72 07/22/23 04:00 Pulse Ox 99 07/22/23 04:00 O2 Del Method Room Air 07/20/23 15:49 07/21/23 07/22/23 07/22/23 22:59 06:59 14:59 Intake Total 770 / 2811.25 1045 / 3856.25 Balance 770 / 2811.25 1045 / 3856.25 Weight last 48 hrs Weight 228 lb 8 oz Weight 235 lb Physical Exam 2 Narrative: BELOW IS A FOCUSED LOWER EXTREMITY EXAM GENERAL: A&O x 3 VASCULAR: DP/PT pulses diminished with delayed capillary refill DERMATOLOGICAL: Right foot second digit amputation site shows incision well coapted with sutures intact. No evidence of dehiscence or signs of infection. Surrounding erythema is receded in comparison to previous evaluation. No underlying crepitus MUSCULOSKELETAL: Ankle joint and hindfoot range of motion within normal limits bilaterally. No tenderness with palpation of medial, lateral or anterior ankle bilaterally. No tenderness with palpation of lateral ankle ligaments bilaterally. No pain with palpation of midfoot bilaterally. 5/5 muscle strength in all 4 quadrants of the lower extremity when tested against resistance. NEUROLOGICAL: Neurological sensation to the affected foot and ankle is diminished through L4-S1 dermatomes via 10g SWMF, diminished sensation extends proximally to the level of the midfoot IMAGING: MRI right foot personally interpreted by me. Fluid accumulation at distal aspect of second metatarsal consistent with postoperative hematoma formation. Abscess more unlikely given recent washout, amputation and intraoperative findings. Reactive marrow edema platnar 2nd metatarsal head. No marina erosions of metatarsal head but cannot rule out early acute osteo. Data 07/22/23 05:11 07/22/23 05:11 Micro: Microbiology 07/18/23 11:35 Gram Stain - Final Toe - Wound Anaerobic Culture - Preliminary Wound Culture - Final Escherichia coli esbl Strep agalactiae - (group b) A&P Assessment and plan (1) Ulcer of right foot with fat layer exposed: (2) Osteomyelitis: (3) Diabetes: (4) Neuropathy: Plan -Right hallux second digit ulceration with osteomyelitis and probable abscess formation -Labs and vitals reviewed -WBC 5.9 -ESR 91 -CRP 119 -VSS -Cultures: Blood: NGTD Wound: E. coli ESBL, sensitivity to imipenem, gentamicin; group B strep -Imaging: MRI right foot personally interpreted by me. Fluid accumulation at distal aspect of second metatarsal consistent with postoperative hematoma formation. Abscess more unlikely given recent washout, amputation and intraoperative findings. Reactive marrow edema platnar 2nd metatarsal head. No marina erosions of metatarsal head but cannot rule out early acute osteo. -Abx Vanco/Zosyn -Diet: Okay for diet -Status post right foot second digit amputation. No plans for further surgical intervention during this admission. Fluid collection on MRI is likely postoperative hematoma formation as opposed to abscess. Reactive marrow edema may be indicative of early acute osteomyelitis. Patient will require long-term IV antibiotics upon discharge -Weight bearing: Weightbearing as tolerated to right foot transfers only -Dressings: Leave surgical dressing clean, dry and intact. Dressing changes morning at bedside by podiatry (07/22/2023) -Continue current Abx therapy -Trend labs -Discharge plan: Ok to discharge home from podiatry standpoint with PICC line and 6 weeks IV antibiotics. Plan is for 6 weeks IV ertapenem. leave surgical dressing clean, dry and intact until outpatient follow up with me. Patient to follow up with me in the outpatient setting later this week. -Okay to discharge home from podiatry standpoint Attestations 2 Medical Necessity Statement*: Right foot second digit osteomyelitis necessitating surgical debridement, IV antibiotics and PICC line placement Coding Level of Care Code Acute Code for [facility] Diagnoses Ulcer of right foot with fat layer exposed L97.512 Osteomyelitis M86.9 Diabetes E11.9 Neuropathy G62.9
[2023-07-22 07:54] VITALS: BP 147/97; PULSE 73; RESP 16; TEMP 36.8; O2SAT 98
[2023-07-22] MEDS: famotidine 20 mg Tablet PO (08:20)
[2023-07-22] MEDS: sennosides-docusate Tablet 2 TAB PO (08:20)
[2023-07-22] MEDS: insulin lispro 100 unit/1 mL SUBCUT (08:20)
--- NOTE | 2023-07-22 09:50 | P.DS_ITS ---
Discharge Providers Date of Admission: 07/17/23 18:25 Date of Discharge: July 22, 2023 Attending Provider at Admission: Whitney Ny MD Attending Provider at Discharge: Abundio Cruz MD Consults: Podiatry: Dr. Valera Primary Care Provider: Carline Pitts APN Diagnoses at Discharge Discharge Diagnosis (1) Ulcer of right foot with fat layer exposed: Status: Acute (2) Osteomyelitis: Status: Acute (3) Diabetes: Status: Acute (4) Neuropathy: Status: Acute Reason for Visit Reason for Visit: Ostomylitis Brief History: History as per HPI: Baldev Schmidt is a 57 year old male with past medical history of neuropathy, diabetes presented to podiatry office with wound to plantar aspect of right foot second digit. He has had a chronic ulcer for which she has been following up with podiatry at his most recent appointment he complained of malaise constitutional symptoms of fever chills nausea over the course of last 4 days. Right foot erythematous, warm, swollen. Strap Machine Operator evaluated patient and he was able to probe down to level of bone. Hospitalist was called for direct admit. Patient to go for or debridement in morning. Will be n.p.o. at midnight. Patient denies any other complaints at this time when seen. Patient did have a fever on Friday and then was seen by podiatry on . He said he also experienced some chills. Otherwise he had no other symptoms. Hospital Course Hospital Course Patient was admitted to the hospital further evaluation and management of diabetic foot ulcer along with concerns for osteomyelitis of the right foot. Podiatry was consulted and MRI foot was obtained which is currently also concerning for osteomyelitis. He underwent right foot second at the amputation. Operative cultures are consistent with ESBL E. coli and strep. He was sravani nued on targeted IV antibiotics. His hospitalization was otherwise unremarkable. He has been discharged hemodynamically stable condition on IV ertapenem going forward for next 6 weeks. During the course of IV antibiotics he will need to have weekly CBC, CMP and CRP. Blood work will be followed by the primary care provider. Dressing to be done as per podiatry team. Physical Exam Narrative: Normal S1-S2 No acute distress Abdomen soft nontender Lungs clear to auscultation bilaterally Right foot surgically bandaged without any soakage in boot Discharge Data Studies Completed and Pending Completed Studies During Hospitalization Category Date Time Status CXRP [XR chest 1V portable [id number]] Routine Exams 07/19/23 15:00 Completed MR foot RT wo/w con [id number] Routine MRI 07/19/23 12:00 Completed Pending at discharge Category Date Time Status Anaerobic Culture Routine Lab 07/18/23 11:35 Results Blood Culture Routine Lab 07/17/23 19:28 Results MAG [Magnesium] AM LABS Lab 07/23/23 04:00 Ordered MAG [Magnesium] AM LABS Lab 07/24/23 04:00 Ordered Wound Culture and Gram Stain Routine Lab 07/18/23 11:35 Results Pathology: Surgical [PTH] Routine Pth 07/18/23 11:57 Received Radiology Impressions Foot MRI 07/19/23 12:00 IMPRESSION: 1. Soft tissue ulceration of the forefoot with a 2.5 cm abscess. There is reactive marrow edema and enhancement of the plantar aspect of the 2nd metatarsal head without evidence of osteomyelitis. Given that the abscess abuts the 2nd metatarsal head, there is risk for subsequent development of osteomyelitis. If there is worsening of the clinical a exam, consider follow-up MRI to reassess. Chest X-Ray 07/19/23 15:00 IMPRESSION: Right PICC line in proper positioning. Microbiology 07/18/23 11:35 Toe - Wound Gram Stain - Final 07/18/23 11:35 Toe - Wound Anaerobic Culture - Preliminary 07/18/23 11:35 Toe - Wound Wound Culture - Final Escherichia coli esbl Strep agalactiae - (group b) 07/17/23 19:28 Blood Blood Culture - Preliminary NEGATIVE TO DATE 07/17/23 19:28 Blood Blood Culture - Preliminary NEGATIVE TO DATE Laboratory Results WBC 6.39 10^3/uL (3.29-11.43) 07/22/23 05:11 RBC 4.87 10^6/uL (3.85-5.65) 07/22/23 05:11 Hgb 12.90 g/dL (11.27-16.99) 07/22/23 05:11 Hct 39.3 % (37-53) 07/22/23 05:11 MCV 80.7 fl (82-101) L 07/22/23 05:11 MCH 26.5 pg (27-33) L 07/22/23 05:11 MCHC 32.8 g/dL (30-55) 07/22/23 05:11 RDW 12.8 % (12.1-15.1) 07/22/23 05:11 Plt Count 252 10^3/cmm (157-399) 07/22/23 05:11 MPV 9.2 fL (7.4-10.4) 07/22/23 05:11 Neut % (Auto) 54.2 % 07/22/23 05:11 Lymph % (Auto) 32.9 % 07/22/23 05:11 [place] % (Auto) 5.5 % 07/22/23 05:11 Eos % (Auto) 5.9 % 07/22/23 05:11 Baso % (Auto) 0.6 % 07/22/23 05:11 Neut # (Auto) 3.46 10^3/uL (1.8-7.7) 07/22/23 05:11 Lymph # (Auto) 2.1 10^3/uL (0.8-4.8) 07/22/23 05:11 [place] # (Auto) 0.4 10^3/uL (0.2-0.9) 07/22/23 05:11 Eos # (Auto) 0.4 10^3/uL (0.0-0.8) 07/22/23 05:11 Baso # (Auto) 0.0 10^3/uL (0.0-0.1) 07/22/23 05:11 Nucleated RBC % (auto) 0 % 07/22/23 05:11 Nucleated RBCs # 0.0 /100WBC 07/22/23 05:11 ESR 91 mm/hr (0-10) H 07/17/23 19:28 PT 14.00 SECONDS (12.1-14.9) 07/18/23 05:16 INR 1.04 (0.8-1.2) 07/18/23 05:16 Sodium 136 mmol/L (136-145) 07/22/23 05:11 Potassium 4.5 mmol/L (3.5-5.1) 07/22/23 05:11 Chloride 102 mmol/L (98-107) 07/22/23 05:11 Carbon Dioxide 24 mmol/L (22-29) 07/22/23 05:11 Anion Gap 14.5 (5-19) 07/22/23 05:11 BUN 14 mg/dL (6-20) 07/22/23 05:11 Creatinine 0.9 mg/dL (0.7-1.2) 07/22/23 05:11 GFR Calculation 87.3 mL/min (90-130) L 07/22/23 05:11 Glucose 150 mg/dL (65-115) H 07/22/23 05:11 POC Glucose 171 mg/dL (70-110) H 07/22/23 06:41 Estimat Average Glucose 146 07/17/23 19:28 Hemoglobin A1c 6.7 % (4.0-6.0) H 07/17/23 19:28 Calculated Osmolality 285 mOsm/kg (285-295) 07/22/23 05:11 Lactic Acid 1.5 mmol/L (0.5-2.2) 07/17/23 19:28 Calcium 9.2 mg/dL (8.5-10.5) 07/22/23 05:11 Magnesium 1.8 mg/dL (1.7-2.3) 07/22/23 05:11 Iron 42 ug/dL (59-158) L 07/21/23 11:02 TIBC 160 mcg/dl 07/21/23 11:02 % Saturation 26.2 % (20-50) 07/21/23 11:02 Unsat Iron Binding 118 ug/dL (112-347) 07/21/23 11:02 Total Bilirubin 0.3 mg/dL (0.15-1.2) 07/22/23 05:11 AST 17 U/L (0-40) 07/22/23 05:11 ALT 18 U/L (0-41) 07/22/23 05:11 Alkaline Phosphatase 75 U/L (40-130) 07/22/23 05:11 C-Reactive Protein 119.5 mg/L (0.0-4.9) H 07/17/23 19:28 Total Protein 7.5 g/dL (6.6-8.7) 07/22/23 05:11 Albumin 3.3 g/dL (3.5-5.2) L 07/22/23 05:11 Globulin 4.2 g/dL (1.3-4.6) 07/22/23 05:11 Triglycerides 80 mg/dL (0-150) 07/21/23 11:02 Cholesterol 103 mg/dL (0-200) 07/21/23 11:02 LDL Cholesterol, Calc 62 mg/dL (50-129) 07/21/23 11:02 Total VLDL Cholesterol 16 mg/dL (0-30) 07/21/23 11:02 HDL Cholesterol 25 mg/dL (60-100) L 07/21/23 11:02 Cholesterol/HDL Ratio 4.12 mg/dL (1.0-5.00) 07/21/23 11:02 Vitamin B12 446 pg/mL (232-1245) 07/21/23 11:02 Procalcitonin 0.08 ng/mL (0-0.5) 07/21/23 11:02 TSH 0.48 uIU/mL (0.27-4.20) 07/17/23 19:28 Vancomycin Trough 17.1 ug/mL (10-15) H 07/20/23 21:26 Vitals Last Vital Signs Temp 98.2 F 07/22/23 07:54 Pulse 73 07/22/23 07:54 Resp 16 07/22/23 07:54 BP 147/97 07/22/23 07:54 Pulse Ox 98 07/22/23 07:54 O2 Del Method Room Air 07/20/23 15:49 Discharge Plan Discharge Patient Disposition: Home Condition: Stable Prescriptions: Continued (DME) diabetic shoes with 3 inserts See Rx Instructions .Route .MEDSUPPLY Qty: 1 0RF Rx Instructions: As directed to the shoe tiara sucralfate 1 gram tablet 1 g PO QID ondansetron HCl 4 mg tablet 4 mg PO Q4H PRN (Reason: Nausea And Vomiting) glipizide 5 mg tablet extended release 24hr 5 mg PO DAILY aspirin 81 mg Tablet,Delayed Release (Dr/Ec) 81 mg PO DAILY pantoprazole 40 mg tablet,delayed release (DR/EC) 40 mg PO BID lisinopril 5 mg tablet 5 mg PO DAILY gabapentin 100 mg capsule 100 mg PO QID Mounjaro 7.5 mg/0.5 mL pen injector 7.5 mg SUBCUT Q7D Discontinued doxycycline hyclate 100 mg capsule 100 mg PO BID Discharge Orders: Discharge Order (Routine); Ordered 02/20/24 Ordered By: Abundio Cruz Other Ambulatory Orders: Miscellaneous Procedure (Order) Location: None Selected Ordered By: Abundio Cruz Referrals: Drake Valera DPM [Physician] - 07/29/23 9:45 am Pitts,BRIGITTE Crowley [Primary Care Provider] - 07/28/23 11:20 am Discharge Diet: Cardiac and Diabetic Discharge Activity: Limit activity as instructed Patient Instructions: Osteomyelitis (DC), How to Care for Your PICC (Peripherally Inserted Central Catheter) (DC), Opioid Safety, Wound Care (General) Activity Restrictions/Additional Instructions: Leave surgical dressing clean, dry and intact until outpatient follow up with podiatry. Picc line to be removed after completion of course of antibiotics. Weekly CBC, CMP, CRP to be followed by pcp Discharge Attestations Time Spent in Discharge Care*: greater than 30 min Quality Metrics Clinical Quality Measures [ No reported AMI, CVA or VTE this stay] Coding Level of Care Code 81752 Total time (in minutes) for Discharge: 60 Diagnoses Ulcer of right foot with fat layer exposed L97.512 Osteomyelitis M86.9 Diabetes E11.9 Neuropathy G62.9
[2023-07-22] MEDS: ertapenem 1,000 MG in sodium chloride 0.9% (plus) 100 ML 200 MG IV (10:40)
[2023-07-22 10:50] LABS: Glucose Point of Care 203 mg/dL (70-110)
[2023-07-22 11:10] VITALS: BP 147/97; PULSE 73; RESP 16; TEMP 36.8; O2SAT 98
[2023-07-22 12:00] VITALS: BP 133/89; PULSE 69; RESP 15; TEMP 36.6; O2SAT 97
== END 2023-07-22 12:05 | disposition home or self-care (01) | DRG 617 ==
PROVIDERS: Podiatrist Foot & Ankle Surgery; Admitting Provider Internal Medicine; PCP Nurse Practitioner Family; Visit Provider Student in an Organized Health Care Education/Training Program
PROC: 0Y6R0Z0 Detachment at Right 2nd Toe, Complete, Open Approach (ICD-10-PCS; principal; 2023-07-18 11:00)
DX: E11.69 Type 2 diabetes mellitus with other specified complication (principal); M86.171 Other acute osteomyelitis, right ankle and foot; Z16.12 Extended spectrum beta lactamase (ESBL) resistance; B96.20 Unspecified Escherichia coli [E. coli] as the cause of diseases classified elsewhere; B95.1 Streptococcus, group B, as the cause of diseases classified elsewhere; E11.42 Type 2 diabetes mellitus with diabetic polyneuropathy; E11.621 Type 2 diabetes mellitus with foot ulcer; L97.512 Non-pressure chronic ulcer of other part of right foot with fat layer exposed
CPT/HCPCS: 36415; 36416; 36573; 36592; 71045; 73720; 80048; 80053; 80061; 80202; 82607; 82962; 83036; 83540; 83550; 83605; 83735; 84145; 84443; 85025; 85610; 85651; 86140; 87040; 87070; 87075; 87077; 87186; 87205; 88305; 88311; 96372; A9577; J1335; J1644; J1815; J2185; J2250; J2543; J2704; J3010; J3370; J3490; J7030

== ENCOUNTER 2023-07-31 12:15 | Oncology outpatient (recurring) (ONCR) | payer BC, SELFPAY ==
[2023-07-24 12:54] LABS: Basophils # 0.1 10^3/uL (0.0-0.1); Basophils % 0.6 %; Eosinophils # 0.3 10^3/uL (0.0-0.8); Eosinophils % 3.6 %; Hematocrit 40.9 % (37-53); Lymphocytes # 2.7 10^3/uL (0.8-4.8); Lymphocytes % 33.2 %; Mean Corpuscular HGB Conc 33.3 g/dL (30-55); Mean Corpuscular Hemoglobin 26.4 pg (27-33); Mean Corpuscular Volume 79.3 fl (82-101); Mean Platelet Volume 9.2 fL (7.4-10.4); Monocytes # 0.4 10^3/uL (0.2-0.9); Monocytes % 5.5 %; Neutrophils # 4.49 10^3/uL (1.8-7.7); Neutrophils % 55.9 %; Nucleated Red Blood Cells % 0 %; Platelet Count 250 10^3/cmm (157-399); Red Blood Count 5.16 10^6/uL (3.85-5.65); White Blood Count 8.04 10^3/uL (3.29-11.43)
[2023-07-24 13:10] LABS: C Reactive Protein 9.1 mg/L (0.0-4.9)
[2023-07-30 11:54] LABS: Basophils # 0.1 10^3/uL (0.0-0.1); Basophils % 0.8 %; Eosinophils # 0.2 10^3/uL (0.0-0.8); Eosinophils % 2.2 %; Hematocrit 42.5 % (37-53); Lymphocytes # 2.8 10^3/uL (0.8-4.8); Lymphocytes % 37.2 %; Mean Corpuscular HGB Conc 32.9 g/dL (30-55); Mean Corpuscular Hemoglobin 26.4 pg (27-33); Mean Platelet Volume 9.5 fL (7.4-10.4); Monocytes # 0.4 10^3/uL (0.2-0.9); Monocytes % 5.3 %; Neutrophils # 3.99 10^3/uL (1.8-7.7); Nucleated Red Blood Cells % 0 %; Platelet Count 228 10^3/cmm (157-399); Red Blood Count 5.31 10^6/uL (3.85-5.65); Red Cell Distribution Width 13.2 % (12.1-15.1); White Blood Count 7.39 10^3/uL (3.29-11.43)
== END 2023-07-31 23:59 | disposition home or self-care (01) ==
PROVIDERS: PCP Nurse Practitioner Family; Visit Provider Student in an Organized Health Care Education/Training Program
DX: Z53.9 Procedure and treatment not carried out, unspecified reason (principal)
CPT/HCPCS: 36592; 85025; 86140

== ENCOUNTER 2023-08-28 11:00 | Oncology outpatient (recurring) (ONCR) | payer BC, SELFPAY ==
[2023-08-07 12:20] LABS: Basophils % 0.6 %; Eosinophils # 0.3 10^3/uL (0.0-0.8); Lymphocytes # 2.6 10^3/uL (0.8-4.8); Lymphocytes % 39.7 %; Mean Corpuscular HGB Conc 33.3 g/dL (30-55); Mean Corpuscular Hemoglobin 26.8 pg (27-33); Mean Corpuscular Volume 80.5 fl (82-101); Mean Platelet Volume 9.8 fL (7.4-10.4); Monocytes # 0.4 10^3/uL (0.2-0.9); Monocytes % 5.3 %; Neutrophils # 3.22 10^3/uL (1.8-7.7); Neutrophils % 49.1 %; Nucleated Red Blood Cells % 0 %; Platelet Count 254 10^3/cmm (157-399); Red Blood Count 5.22 10^6/uL (3.85-5.65); Red Cell Distribution Width 13.2 % (12.1-15.1); White Blood Count 6.57 10^3/uL (3.29-11.43)
[2023-08-07 12:48] LABS: C Reactive Protein 13.4 mg/L (0.0-4.9)
[2023-08-14 11:51] VITALS: BP 144/91; PULSE 70; RESP 16; TEMP 36.4; O2SAT 97
[2023-08-14 12:35] LABS: Basophils % 0.5 %; Eosinophils # 0.2 10^3/uL (0.0-0.8); Eosinophils % 4.2 %; Hematocrit 40.2 % (37-53); Lymphocytes # 2.2 10^3/uL (0.8-4.8); Lymphocytes % 38.8 %; Mean Corpuscular HGB Conc 32.8 g/dL (30-55); Mean Corpuscular Hemoglobin 26.5 pg (27-33); Mean Corpuscular Volume 80.7 fl (82-101); Monocytes # 0.3 10^3/uL (0.2-0.9); Neutrophils # 2.86 10^3/uL (1.8-7.7); Neutrophils % 50.1 %; Nucleated Red Blood Cells % 0 %; Platelet Count 210 10^3/cmm (157-399); Red Blood Count 4.98 10^6/uL (3.85-5.65); Red Cell Distribution Width 13.2 % (12.1-15.1)
[2023-08-21 12:00] LABS: Basophils % 0.6 %; Eosinophils # 0.2 10^3/uL (0.0-0.8); Eosinophils % 3.4 %; Hematocrit 41.7 % (37-53); Lymphocytes # 2.6 10^3/uL (0.8-4.8); Lymphocytes % 40.2 %; Mean Corpuscular HGB Conc 33.1 g/dL (30-55); Mean Corpuscular Hemoglobin 26.6 pg (27-33); Mean Corpuscular Volume 80.5 fl (82-101); Mean Platelet Volume 9.7 fL (7.4-10.4); Monocytes # 0.4 10^3/uL (0.2-0.9); Monocytes % 5.5 %; Neutrophils # 3.25 10^3/uL (1.8-7.7); Nucleated Red Blood Cells % 0 %; Platelet Count 219 10^3/cmm (157-399); Red Blood Count 5.18 10^6/uL (3.85-5.65); Red Cell Distribution Width 13.3 % (12.1-15.1)
[2023-08-28 11:24] LABS: Basophils % 0.7 %; Eosinophils # 0.2 10^3/uL (0.0-0.8); Eosinophils % 3.7 %; Hematocrit 40.9 % (37-53); Lymphocytes # 2.1 10^3/uL (0.8-4.8); Lymphocytes % 37.3 %; Mean Corpuscular HGB Conc 32.8 g/dL (30-55); Mean Corpuscular Hemoglobin 26.7 pg (27-33); Mean Corpuscular Volume 81.6 fl (82-101); Mean Platelet Volume 9.5 fL (7.4-10.4); Monocytes # 0.3 10^3/uL (0.2-0.9); Monocytes % 5.6 %; Neutrophils # 2.95 10^3/uL (1.8-7.7); Neutrophils % 51.8 %; Nucleated Red Blood Cells % 0 %; Platelet Count 184 10^3/cmm (157-399); Red Blood Count 5.01 10^6/uL (3.85-5.65); Red Cell Distribution Width 13.7 % (12.1-15.1); White Blood Count 5.69 10^3/uL (3.29-11.43)
[2023-08-28 11:47] LABS: C Reactive Protein 3.8 mg/L (0.0-4.9)
== END 2023-08-31 23:59 | disposition home or self-care (01) ==
PROVIDERS: PCP Nurse Practitioner Family; Visit Provider Student in an Organized Health Care Education/Training Program
DX: M86.9 Osteomyelitis, unspecified (principal); Z53.9 Procedure and treatment not carried out, unspecified reason
CPT/HCPCS: 36592; 85025; 86140

== ENCOUNTER 2023-09-05 09:00 | Oncology outpatient (recurring) (ONCR) | payer BC, SELFPAY ==
[2023-09-04 10:02] LABS: Basophils % 0.7 %; Eosinophils # 0.2 10^3/uL (0.0-0.8); Eosinophils % 3.1 %; Hematocrit 42.2 % (37-53); Lymphocytes # 2.3 10^3/uL (0.8-4.8); Mean Corpuscular HGB Conc 32.2 g/dL (30-55); Mean Corpuscular Hemoglobin 26.2 pg (27-33); Mean Corpuscular Volume 81.3 fl (82-101); Mean Platelet Volume 9.8 fL (7.4-10.4); Monocytes # 0.3 10^3/uL (0.2-0.9); Monocytes % 5.5 %; Neutrophils # 2.98 10^3/uL (1.8-7.7); Neutrophils % 51.4 %; Nucleated Red Blood Cells % 0 %; Platelet Count 204 10^3/cmm (157-399); Red Blood Count 5.19 10^6/uL (3.85-5.65); Red Cell Distribution Width 13.7 % (12.1-15.1)
[2023-09-04 10:13] LABS: C Reactive Protein 4.3 mg/L (0.0-4.9)
== END 2023-09-30 23:59 | disposition home or self-care (01) ==
PROVIDERS: PCP Nurse Practitioner Family; Visit Provider Student in an Organized Health Care Education/Training Program
DX: Z53.9 Procedure and treatment not carried out, unspecified reason (principal)
CPT/HCPCS: 36592; 85025; 86140